=== PATIENT | male | born 1950 | race Caucasian/White ===

== ENCOUNTER 2016-02-08 21:39 | Observation (INO) | payer OTHER ==
[~2016-02-08] VITALS: Ht 185.4 cm; Wt 92.9 kg
[~2016-02-08 21:39] MED LIST: ASPCH81X PO; ATOR-24 PO; CARV12.52 PO; INSDGIPEN SC; LSN20 PO; METF1000 PO; NITR0.4S UT; NRN800 PO; NVLGIPEN SC; NYSCR30 TOP; ROPI1TAB29 PO; TRAM-10 PO; TRMO115 TOP
--- NOTE | 2016-02-08 21:57 | EMERGENCY ROOM VISIT NOTE ---
History Report prepared by Semaj: Rommel Wiley Under the Supervision of: Dr. Oren Vanegas M.D. First contact with patient: 21:44 Chief Complaint: CHEST PAIN Stated Complaint: HIGH BP/CHEST PAIN History of Present Illness The patient is a 65 year old male who presents to the Emergency Room with complaints of intermittent chest pain occurring this evening. The pain is described as tightness, and is rated 6/10 in severity. The patient also had a slight headache. He does not currently have chest pain or a headache. The episodes of chest tightness lasted only a few minutes. He had two episodes in total. His blood pressure was elevated at home at 220/121. The patient takes Lisinopril for hypertension. His Lisinopril dose was halved and he was taken off of two other blood pressure medications because his pressure was too low in October. He has a history of heart attack and TIA. The patient's last stress test was in October. Source of History: patient Onset: this evening Position: chest Symptom Intensity: 6/10 Quality: other (tightness) Timing: intermittent Associated Symptoms: + headache Note: Hypertension. Review of Systems See HPI for pertinent positives & negatives. A total of 10 systems reviewed and were otherwise negative. Past Medical & Surgical Medical Problems: (1) ARF (acute renal failure) (2) CAD (coronary artery disease) (3) DM2 (diabetes mellitus, type 2) (4) HLD (hyperlipidemia) (5) HTN (hypertension) (6) Neuropathy (7) Stroke Surgical Problems: (1) H/O cardiac catheterization (2) H/O knee surgery (3) History of lumbar fusion (4) Hx of tonsillectomy (5) S/P wrist surgery Family History Gallbladder disease Heart disease Social History Smoking Status: Former Smoker Drug Use: none Marital Status: Occupation Status: retired, disabled Current/Historical Medications Scheduled Aspirin (Aspirin Chewable), 81 MG PO DAILY Atorvastatin (Lipitor), 40 MG PO DAILY Carvedilol (Coreg), 12.5 MG PO BID Insulin Aspart (Novolog Flexpen), 1 DOSE SC ACHS Insulin Glargine (Lantus Solostar), 22 UNITS SC HS Lisinopril (Lisinopril), 10 MG PO QAM Metformin Hcl (Glucophage), 1,000 MG PO BIDM Nystatin (Nystatin Cream), 1 APPLN TOP BID Ropinirole HCl (Ropinirole HCl), 1 MG PO HS Triamcinolone Acet (Triamcinolone Acetonide), 1 APPLN TOP BID Scheduled PRN Gabapentin (Gabapentin), 800 MG PO TID PRN for Pain Lisinopril (Lisinopril), 10 MG PO QPM PRN for Hypertension Nitroglycerin (Nitrostat), 0.4 MG UT UD PRN for Chest Pain Oxycodone Immediate Rel Tab (Roxicodone Ir), 5-10 MG PO DAILY PRN for Pain Allergies Coded Allergies: No Known Allergies (Unverified , 08/24/15) Physical Exam Vital Signs Date Time Temp Pulse Resp B/P Pulse Ox O2 Delivery O2 Flow Rate FiO2 02/08/16 22:08 Room Air 02/08/16 22:01 80 02/08/16 21:40 36.7 87 18 191/112 96 Room Air Physical Exam CONSTITUTIONAL: No acute distress. HEENT: No icterus, moist mucous membranes NECK: No meningismus, trachea is midline. CARDIOVASCULAR: Regular rate, normal perfusion RESPIRATORY: Unlabored breathing. Clear to auscultation. GASTROINTESTINAL: Non-tender GENITOURINARY: No flank tenderness MUSCULOSKELETAL: Full range of motion NEUROLOGIC: No acute gross focal deficits. PSYCHIATRIC: Normal affect SKIN: Normal for ethnicity. Medical Decision & Procedures ER Provider Diagnostic Interpretation: X-ray results as stated below per interpretation by me and the radiologist. SINGLE VIEW CHEST CLINICAL HISTORY: Atypical chest pain. FINDINGS: An AP, portable, upright chest radiograph is compared to study dated 08/24/2015. The cardiomediastinal silhouette is unremarkable. The lungs and pleural spaces are clear. No pneumothorax is seen. The bony thorax is grossly intact. Fusion hardware is noted at the thoracolumbar junction. IMPRESSION: No active disease in the chest. Electronically signed by: Oscar Floyd M.D. 02/08/2016 10:11 PM Laboratory Results 02/08/16 21:57 Red Blood Count 4.39, Mean Corpuscular Volume 87.7, Mean Corpuscular Hemoglobin 31.2, Mean Corpuscular Hemoglobin Concent 35.6, Mean Platelet Volume 11.2, Neutrophils (%) (Auto) 53.7, Lymphocytes (%) (Auto) 37.5, Monocytes (%) (Auto) 4.8, Eosinophils (%) (Auto) 3.2, Basophils (%) (Auto) 0.5, Neutrophils # (Auto) 4.27, Lymphocytes # (Auto) 2.97, Monocytes # (Auto) 0.38, Eosinophils # (Auto) 0.25, Basophils # (Auto) 0.04 Test 02/08/16 21:57 White Blood Count 7.93 K/uL (4.8-10.8) Red Blood Count 4.39 M/uL (4.7-6.1) Hemoglobin 13.7 g/dL (14.0-18.0) Hematocrit 38.5 % (42-52) Mean Corpuscular Volume 87.7 fL (80-100) Mean Corpuscular Hemoglobin 31.2 pg (25-34) Mean Corpuscular Hemoglobin Concent 35.6 g/dl (32-36) Platelet Count 174 K/uL (130-400) Mean Platelet Volume 11.2 fL (7.4-10.4) Neutrophils (%) (Auto) 53.7 % Lymphocytes (%) (Auto) 37.5 % Monocytes (%) (Auto) 4.8 % Eosinophils (%) (Auto) 3.2 % Basophils (%) (Auto) 0.5 % Neutrophils # (Auto) 4.27 K/uL (1.4-6.5) Lymphocytes # (Auto) 2.97 K/uL (1.2-3.4) Monocytes # (Auto) 0.38 K/uL (0.11-0.59) Eosinophils # (Auto) 0.25 K/uL (0-0.5) Basophils # (Auto) 0.04 K/uL (0-0.2) RDW Standard Deviation 37.1 fL (36.4-46.3) RDW Coefficient of Variation 11.7 % (11.5-14.5) Immature Granulocyte % (Auto) 0.3 % Immature Granulocyte # (Auto) 0.02 K/uL (0.00-0.02) Prothrombin Time 10.3 SECONDS (9.0-12.0) Prothromb Time International Ratio 1.0 (0.9-1.1) Activated Partial Thromboplast Time 21.3 SECONDS (21.0-31.0) Partial Thromboplastin Ratio 0.8 Troponin I < 0.015 ng/ml (0-0.045) Labs reviewed by ED physician. Medications Administered Medications (Trade) Dose Ordered Sig/Cari Route Start Time Stop Time Status Last Admin Dose Admin Clonidine HCl (Catapres Tab) 0.1 mg NOW ONCE PO 02/08/16 22:00 02/08/16 22:01 DC 02/08/16 22:07 0.1 MG ECG Indication: chest pain Rate (beats per minute): 81 Rhythm: sinus rhythm Findings: nonspecific-ST abn, other (normal axis) ED Course 2145: Past medical records reviewed. The patient was evaluated in room A9b. A complete history and physical examination was performed. 2200: Clonidine HCl 0.1 mg PO. 2250: Hospitalist service is being paged. 2300: Discussed everything with the patient. He understands and agrees with the plan. []: Discussed the case with Dr. Bolden, [facility] Hospitalist. The patient will be evaluated Medical Decision Differential diagnosis: coronary artery disease, hypertensive urgency. 65-year-old with history of insulin-dependent diabetes as well as coronary artery disease status post CA several years ago around [place] and no history of hypertension on lisinopril and several other medications presents to the emergency room for waxing and waning chest pain and context of blood pressure 220/140 at home and 190/112 the emergency room. Review of systems notable for mild waxing and waning headache without focal neurologic deficits. He also reveals the last several months his doctors reduced his blood pressure medications as blood pressures running too low. He is comfortable on my exam without any chest pain or headaches. EKG and troponin within normal limits. Given clonidine for high blood pressure and admission arranged with hospital service Impression Primary Impression: HTN (hypertension) Additional Impression: Precordial chest pain Scribe Attestation The scribe's documentation has been prepared under my direction and personally reviewed by me in its entirety. I confirm that the note above accurately reflects all work, treatment, procedures, and medical decision making performed by me. Departure Information Dispostion Being Evaluated By Hospitalist Referrals Zafar Lau M.D.([facility]) (PCP) Patient Instructions A Signature Page, My [facility]
[2016-02-08] MEDS ORDERED: CLONIDINE HCL 0.1 MG TAB PO ONE (22:00)
--- NOTE | 2016-02-08 22:13 | DIAGNOSTIC IMAGING REPORT ---
SINGLE VIEW CHEST CLINICAL HISTORY: Atypical chest pain. FINDINGS: An AP, portable, upright chest radiograph is compared to study dated 08/24/2015. The cardiomediastinal silhouette is unremarkable. The lungs and pleural spaces are clear. No pneumothorax is seen. The bony thorax is grossly intact. Fusion hardware is noted at the thoracolumbar junction. IMPRESSION: No active disease in the chest. Electronically signed by: Oscar Floyd M.D. 02/08/2016 10:11 PM
[2016-02-08 22:22] LABS: BASO % 0.5 %; BASO ABS # 0.04 K/uL (0-0.2); COMPLETE YES; EOS % 3.2 %; HEMATOCRIT 38.5 % (42-52); IG% 0.3 %; LYMPH % 37.5 %; LYMPH ABS # 2.97 K/uL (1.2-3.4); MEAN CELL VOLUME 87.7 fL (80-100); MEAN CORPUSCULAR HEMOGLOBIN 31.2 pg (25-34); MEAN CORPUSCULAR HGB CONC 35.6 g/dl (32-36); MEAN PLATELET VOLUME 11.2 fL (7.4-10.4); MONO % 4.8 %; NEUT % 53.7 %; PLATELET COUNT 174 K/uL (130-400); RED BLOOD COUNT 4.39 M/uL (4.7-6.1); WHITE BLOOD COUNT 7.93 K/uL (4.8-10.8)
[2016-02-08 22:31] LABS: PARTIAL THROMBOPLASTIN RATIO 0.8; PROTHROMBIN TIME (PATIENT) 10.3 SECONDS (9.0-12.0)
[2016-02-08] MEDS ORDERED: NVLGI/PEN SC (22:55)
[2016-02-08] MEDS ORDERED: OXYC1TAB3 PO (22:55)
[2016-02-08] MEDS ORDERED: INSDGIPEN SC (22:55)
[2016-02-08] MEDS ORDERED: LSN20 PO (22:59)
[2016-02-09] VITALS (8 sets, daily range): BP systolic 151–192; BP diastolic 83–113; PULSE 65–77; TEMP 36.4–36.7; O2SAT 95–98; Ht 185.4 cm; Wt 92.9 kg
[2016-02-09] MEDS ORDERED: DEXTROSE 50% 50 ML SYR IV PRN (01:15)
[2016-02-09] MEDS ORDERED: GLUCAGON FOR INJ 1 MG VIAL SQ PRN (01:15)
[2016-02-09] MEDS ORDERED: ACETAMINOPHEN 325 MG TAB PO PRN (01:15)
[2016-02-09] MEDS ORDERED: ONDANSETRON INJ 2 MG/ML 2 ML VIAL IV PRN ×2 (01:15)
[2016-02-09] MEDS ORDERED: GLUCOSE 40% GEL 15 GM TUBE PO PRN (01:15)
[2016-02-09] MEDS ORDERED: hydrOXYzine HCL 10 MG TAB PO PRN (01:15)
[2016-02-09] MEDS ORDERED: NITROGLYCERIN 0.4 MG SL PER TAB CHARGE SL PRN (01:15)
[2016-02-09] MEDS ORDERED: GLUCOSE 10 TABS/TUBE PO PRN (01:15)
[2016-02-09] MEDS ORDERED: GABAPENTIN 800 MG TAB PO PRN (01:15)
[2016-02-09] MEDS ORDERED: LORAZEPAM 2 MG/ML 1 ML VIAL IV PRN (01:15)
[2016-02-09] MEDS ORDERED: HYDROmorphone INJ 1 MG/ML SYR IV PRN (01:15)
[2016-02-09] MEDS ORDERED: LIDODERM (LIDOCAINE) PATCH 5% TD STA (01:22)
[2016-02-09 01:31] LABS: BUN/CREATININE RATIO 15.9 (10-20); CALCIUM 8.5 mg/dl (8.5-10.1); CREATININE 1.4 mg/dl (0.60-1.40); POTASSIUM 4.4 mmol/L (3.5-5.1)
[2016-02-09 01:33] LABS: ALB/GLOB RATIO 1.1 (0.9-2)
[2016-02-09] MEDS ORDERED: IV FLUIDS COMPLETED PRN (04:45)
--- NOTE | 2016-02-09 07:10 | DIAGNOSTIC IMAGING REPORT ---
HEAD CT NONCONTRAST CT DOSE: 614.27 mGy.cm HISTORY: Right-sided headache. TECHNIQUE: Multiaxial CT images of the head were performed without the use of intravenous contrast. Automated exposure control was utilized for this study. Comparison: Head CT 08/17/2013 Findings: The paranasal sinuses and mastoid air cells are clear. The calvarium and skull base are intact. There is no mass, hematoma, midline shift, acute infarct. White matter hypodensity is nonspecific but suggestive of microvascular ischemic change. The ventricles and sulci demonstrate mild age-related involutional changes. Impression: No significant change compared to the prior study. No acute intracranial abnormality. Electronically signed by: Gulshan Abraham M.D. 02/09/2016 7:08 AM
[2016-02-09 07:38] LABS: BASO % 0.9 %; BASO ABS # 0.06 K/uL (0-0.2); COMPLETE YES; EOS % 3.2 %; HEMATOCRIT 35.9 % (42-52); IG% 0.3 %; LYMPH % 37.2 %; LYMPH ABS # 2.53 K/uL (1.2-3.4); MEAN CELL VOLUME 86.9 fL (80-100); MEAN CORPUSCULAR HGB CONC 35.7 g/dl (32-36); MEAN PLATELET VOLUME 10.6 fL (7.4-10.4); MONO % 6.8 %; NEUT % 51.6 %; PLATELET COUNT 143 K/uL (130-400); RED BLOOD COUNT 4.13 M/uL (4.7-6.1); WHITE BLOOD COUNT 6.81 K/uL (4.8-10.8)
--- NOTE | 2016-02-09 07:50 | HISTORY & PHYSICAL EXAMINATION ---
DATE OF ADMISSION: 02/09/2016 PRIMARY CARE DOCTOR: Dr. Lau. Patient is planning to change to Dr. Lorraine Espinal. Hx obtained from px and records. CHIEF COMPLAINT: Chest pain, high blood pressure. HISTORY OF PRESENT ILLNESS: Medical history significant for hypertension, CAD, DM2, insulin requiring, past tobacco abuse, chronic back pain sp surgery, history of TIA as per records , hyperlipidemia. hx MRSA Recent confinement August 2015 for atypical chest pain. TTE showed EF 65-70%, aortic valve sclerosis, diastolic dysfunction. No pericardial effusion. Patient discharged home. The last few days, patient stressed out by sister's illness along with worsening of chronic back pain usually during cold weather. Patient noted left-sided chest achy discomfort. nonradiating. No shortness of breath, SBP at home is 200s. Patient also noted transient right-sided achy headache symptoms. Patient currently comfortable. Patient compliant with meds. Admits to eating sauerkraut which made him and his pass a lot of gas. MEDICAL HISTORY: As above. SURGERIES: Orthopedic surgery, back surgery, tonsillectomy, knee surgery, drainage of arm. HOME MEDICATIONS: Include aspirin, Lipitor, Coreg, gabapentin, Lantus, lisinopril, Glucophage, Nitrostat, oxycodone, ropinirole, and triamcinolone. ALLERGIES: No known drug allergies. FAMILY HISTORY: Heart disease. PERSONAL AND SOCIAL HISTORY: Past tobacco abuse, disabled. REVIEW OF SYSTEMS: As per HPI, all other ROS negative. PHYSICAL EXAMINATION: VITAL SIGNS: Blood pressure was noted to be 191/112, later 170/108; pulse rate 80; RR 16; temperature 36.4; sats 98 on room air. GENERAL: Noted to be slightly anxious, no respiratory distress. SKIN: pallor. HEENT: Partial alopecia. [place] palpebral conjunctivae, dry mucosa. NECK: No JVD. Supple. CHEST: Clear to auscultation. HEART: Regular rate and rhythm. ABDOMEN: Soft, BACK : tenderness, low back. Negative straight leg raise. NEUROLOGIC: No gross focality. LABORATORY DATA: Hemoglobin 13.7, hematocrit 38.4, white cells 7.9, platelets 174. Sodium 140, potassium 4.4, chloride 107, CO2 30, BUN 23, creatinine 1.4, glucose was noted to be 149. trop 0 IMAGING DATA: Chest x-ray showed no active disease in the chest. CT head, no acute pathology. EKG; rate 80, normal sinus rhythm, right bundle branch block, negative ischemia. ASSESSMENT: 1. Chest pain, likely secondary to hypertensive urgency multifactorial : worsening of chronic back pain 2 to cold weather as per px personal stress dietary indiscretion (sauerkraut consumption) 2. hx CAD as per records, no intervention in the past 3. past tobacco abuse 4. DM2, insulin requiring reasonable control as of recent outpx HgA1c October 2014 , 7.4 PLAN: Observation PCU Titrate blood pressure medicine analgesia, Lidoderm patch trial anxiolytic p.r.n. Home in the morning if the next troponin normal and blood pressure controlled. Continue basal insulin, ISS BG goal 140-180 Patient due for HgA1c check DVT prophylaxis with Lovenox subQ. Full code. MTDD
[2016-02-09] MEDS: ENOXAPARIN 40 MG/0.4 ML SYR SC SCH (08:11)
[2016-02-09] MEDS: CARVEDILOL 12.5 MG TAB PO SCH ×2 (08:12→19:36)
[2016-02-09] MEDS: ASPIRIN 81 MG ECTAB PO SCH (08:14)
[2016-02-09] MEDS: ATORVASTATIN 20 MG TAB PO SCH (08:14)
[2016-02-09 08:16] LABS: ESTIMATED AVERAGE GLUCOSE 174 mg/dl; HA1C FLAG Normal (Normal)
[2016-02-09] MEDS: INSULIN ASPART 100 UNITS/ML 3 ML PEN SC SCH ×4 (08:17→20:35)
[2016-02-09] MEDS: INSULIN GLARGINE SOLOSTAR 100 UNITS/ML 3 ML PEN SC SCH ×2 (08:19→20:40)
[2016-02-09] MEDS ORDERED: LISINOPRIL 10 MG TAB PO SCH (09:00)
--- NOTE | 2016-02-09 15:07 | Progress Note ---
Internal Med Progress Note Date of Service: Feb 09, 2016. Provider Documentation: SUBJECTIVE: The patient was seen and examined Denies any more CP Has had High Blood pressure noted at home Has had Anxiety associated with the rise in BP OBJECTIVE: Vital Signs-as noted below Exam: General-Nop distress at rest Eyes-NOrmal ENT-normal Neck-supple Lungs-clear to auscultate bilaterally Heart-Regular,no murmur appreciated Abdomen-Benign,no masses,bowel sound present Extremities-No edema Neuro-AAoc3 Lab data as noted below. ASSESSMENT & PLAN: Chest pain, Doubt any ACS ,serial Troponin negative Likely secondary to hypertensive urgency Worsening of chronic back pain 2 to cold weather as per px Personal stress and dietary indiscretion (sauerkraut consumption) BP was very High >200 at home Recent Change in Medication BP seems toward control now Continue current medications CAD as per records, no intervention in the past no More CP ROMELIA are negative Past tobacco abuse DM2, insulin requiring reasonable control as of recent outpx HgA1c October 2014 , 7.4 Continue basal insulin, ISS BG goal 140-180 Patient due for HgA1c check DVT prophylaxis with Lovenox subQ. Full code. DISPOSITION Likely home tomorrow if BP is reasonable and no symptoms Vital Signs: Date Time Temp Pulse Resp B/P Pulse Ox O2 Delivery O2 Flow Rate FiO2 02/09/16 11:51 36.5 67 19 152/92 98 Room Air 02/09/16 08:30 36.5 65 18 169/90 97 Room Air 02/09/16 04:00 Room Air 02/09/16 03:36 36.7 74 15 162/83 95 Room Air 02/09/16 01:38 36.4 77 16 175/91 98 Room Air 02/09/16 00:58 160/90 100 Room Air 02/09/16 00:44 80 16 02/09/16 00:28 163/94 02/09/16 00:14 78 19 02/08/16 23:58 176/104 02/08/16 23:28 171/97 02/08/16 23:14 82 22 02/08/16 23:09 80 17 98 Room Air 02/08/16 22:58 172/103 02/08/16 22:39 75 17 02/08/16 22:37 175/108 99 Room Air 02/08/16 22:09 79 16 02/08/16 22:08 Room Air 02/08/16 22:01 80 02/08/16 21:53 195/136 02/08/16 21:40 36.7 87 18 191/112 96 Room Air Lab Results: Results Past 24 Hours Test 02/08/16 21:57 02/09/16 06:44 02/09/16 07:16 02/09/16 11:20 Range/Units White Blood Count 7.93 6.81 4.8-10.8 K/uL Red Blood Count 4.39 4.13 4.7-6.1 M/uL Hemoglobin 13.7 12.8 14.0-18.0 g/dL Hematocrit 38.5 35.9 42-52 % Mean Corpuscular Volume 87.7 86.9 80-100 fL Mean Corpuscular Hemoglobin 31.2 31.0 25-34 pg Mean Corpuscular Hemoglobin Concent 35.6 35.7 32-36 g/dl Platelet Count 174 143 130-400 K/uL Mean Platelet Volume 11.2 10.6 7.4-10.4 fL Neutrophils (%) (Auto) 53.7 51.6 % Lymphocytes (%) (Auto) 37.5 37.2 % Monocytes (%) (Auto) 4.8 6.8 % Eosinophils (%) (Auto) 3.2 3.2 % Basophils (%) (Auto) 0.5 0.9 % Neutrophils # (Auto) 4.27 3.52 1.4-6.5 K/uL Lymphocytes # (Auto) 2.97 2.53 1.2-3.4 K/uL Monocytes # (Auto) 0.38 0.46 0.11-0.59 K/uL Eosinophils # (Auto) 0.25 0.22 0-0.5 K/uL Basophils # (Auto) 0.04 0.06 0-0.2 K/uL RDW Standard Deviation 37.1 36.8 36.4-46.3 fL RDW Coefficient of Variation 11.7 11.6 11.5-14.5 % Immature Granulocyte % (Auto) 0.3 0.3 % Immature Granulocyte # (Auto) 0.02 0.02 0.00-0.02 K/uL Prothrombin Time 10.3 9.0-12.0 SECONDS Prothromb Time International Ratio 1.0 0.9-1.1 Activated Partial Thromboplast Time 21.3 21.0-31.0 SECONDS Partial Thromboplastin Ratio 0.8 Sodium Level 145 136-145 mmol/L Potassium Level 4.4 3.5-5.1 mmol/L Chloride Level 107 98-107 mmol/L Carbon Dioxide Level 30 21-32 mmol/L Anion Gap 8.0 3-11 mmol/L Blood Urea Nitrogen 22 7-18 mg/dl Creatinine 1.40 0.60-1.40 mg/dl Est Creatinine Clear Calc Drug Dose 66.4 ml/min Estimated GFR () 61.5 Estimated GFR (Non- 53.1 BUN/Creatinine Ratio 15.9 10-20 Random Glucose 149 70-99 mg/dl Estimated Average Glucose 174 mg/dl Hemoglobin A1c 7.7 4.5-5.6 % Calcium Level 8.5 8.5-10.1 mg/dl Total Bilirubin 0.2 0.2-1 mg/dl Aspartate Amino Transf (AST/SGOT) 24 15-37 U/L Alanine Aminotransferase (ALT/SGPT) 31 12-78 U/L Alkaline Phosphatase 95 45-117 U/L Troponin I < 0.015 < 0.015 0-0.045 ng/ml Total Protein 6.5 6.4-8.2 gm/dl Albumin 3.4 3.4-5.0 gm/dl Globulin 3.1 2.5-4.0 gm/dl Albumin/Globulin Ratio 1.1 0.9-2 Lipase 229 73-393 U/L Bedside Glucose 136 183 70-99 mg/dl Hepatitis C Antibody Screen NEG NEG
[2016-02-09] MEDS: OXYCODONE HCL IR 5 MG TAB (IMMEDIATE RELEASE) PO PRN ×2 (19:40→23:34)
[2016-02-09] MEDS ORDERED: ROPINIROLE HCL 1 MG TAB PO SCH (21:00)
[2016-02-09] MEDS: LISINOPRIL 10 MG TAB PO SCH (21:44)
[2016-02-10] VITALS (7 sets, daily range): BP systolic 145–188; BP diastolic 67–89; PULSE 67–69; TEMP 36.5–37; O2SAT 96–99
[2016-02-10 06:37] LABS: BASO % 0.6 %; BASO ABS # 0.04 K/uL (0-0.2); COMPLETE YES; EOS % 3.6 %; HEMATOCRIT 36.9 % (42-52); IG% 0.3 %; LYMPH ABS # 2.48 K/uL (1.2-3.4); MEAN CELL VOLUME 86.8 fL (80-100); MEAN CORPUSCULAR HEMOGLOBIN 31.3 pg (25-34); MONO % 8.5 %; PLATELET COUNT 142 K/uL (130-400); RED BLOOD COUNT 4.25 M/uL (4.7-6.1)
[2016-02-10] MEDS: INSULIN ASPART 100 UNITS/ML 3 ML PEN SC SCH ×3 (07:00→16:15)
[2016-02-10 07:08] LABS: BUN/CREATININE RATIO 17.4 (10-20); CALCIUM 8.8 mg/dl (8.5-10.1); CREATININE 0.94 mg/dl (0.60-1.40); POTASSIUM 3.6 mmol/L (3.5-5.1)
[2016-02-10] MEDS: LISINOPRIL 10 MG TAB PO SCH (08:49)
[2016-02-10] MEDS: ASPIRIN 81 MG ECTAB PO SCH (08:49)
[2016-02-10] MEDS: ATORVASTATIN 20 MG TAB PO SCH (08:50)
[2016-02-10] MEDS: CARVEDILOL 12.5 MG TAB PO SCH (08:50)
[2016-02-10] MEDS: INSULIN GLARGINE SOLOSTAR 100 UNITS/ML 3 ML PEN SC SCH (08:51)
[2016-02-10] MEDS: ENOXAPARIN 40 MG/0.4 ML SYR SC SCH (08:52)
[2016-02-10] MEDS ORDERED: LIDODERM (LIDOCAINE) PATCH 5% TD SCH (09:00)
--- NOTE | 2016-02-10 10:50 | Progress Note ---
Internal Med Progress Note Date of Service: Feb 10, 2016. Provider Documentation: SUBJECTIVE: The patient was seen and examined Has had High Blood pressure noted at home Has had Anxiety associated with the rise in BP BP seems to be towards control side Denies any symptoms-No chest pain,palpitation OBJECTIVE: Vital Signs-as noted below Exam: General-Nop distress at rest Eyes-Normal ENT-normal Neck-supple Lungs-clear to auscultate bilaterally Heart-Regular,no murmur appreciated Abdomen-Benign,no masses,bowel sound present Extremities-No edema Neuro-AAoc3 Lab data as noted below. ASSESSMENT & PLAN: Chest pain, Doubt any ACS ,serial Troponin negative Likely secondary to hypertensive urgency Worsening of chronic back pain 2 to cold weather as per px Personal stress and dietary indiscretion (sauerkraut consumption) BP was very High >200 at home Recent Change in Medication BP seems toward control now Continue current medications Denies any more symptoms Ready to be discharged CAD as per records, no intervention in the past no More CP ROMELIA are negative Past tobacco abuse DM2, insulin requiring reasonable control as of recent outpx HgA1c October 2014 , 7.4 Continue basal insulin, ISS BG goal 140-180 Patient due for HgA1c check-7.7 on 02/08/2016 DVT prophylaxis with Lovenox subQ. Full code. DISPOSITION Discharge home today Vital Signs: Date Time Temp Pulse Resp B/P Pulse Ox O2 Delivery O2 Flow Rate FiO2 02/10/16 08:43 36.7 68 16 160/76 99 02/10/16 08:00 98 Room Air 02/10/16 04:03 Room Air 02/10/16 03:48 36.5 67 15 158/89 98 Room Air 02/10/16 00:05 Room Air 02/09/16 23:38 36.4 66 17 164/92 98 Room Air 02/09/16 20:45 169/108 02/09/16 20:45 192/113 02/09/16 20:05 Room Air 02/09/16 19:49 36.7 68 16 170/97 98 Room Air 02/09/16 16:16 36.6 66 18 151/86 96 Room Air 02/09/16 16:00 Room Air 02/09/16 12:00 Room Air 02/09/16 11:51 36.5 67 19 152/92 98 Room Air Lab Results: Results Past 24 Hours Test 02/09/16 11:20 02/09/16 15:59 02/09/16 19:58 02/10/16 06:10 Range/Units Bedside Glucose 183 110 132 70-99 mg/dl White Blood Count 6.70 4.8-10.8 K/uL Red Blood Count 4.25 4.7-6.1 M/uL Hemoglobin 13.3 14.0-18.0 g/dL Hematocrit 36.9 42-52 % Mean Corpuscular Volume 86.8 80-100 fL Mean Corpuscular Hemoglobin 31.3 25-34 pg Mean Corpuscular Hemoglobin Concent 36.0 32-36 g/dl Platelet Count 142 130-400 K/uL Mean Platelet Volume 11.0 7.4-10.4 fL Neutrophils (%) (Auto) 50.0 % Lymphocytes (%) (Auto) 37.0 % Monocytes (%) (Auto) 8.5 % Eosinophils (%) (Auto) 3.6 % Basophils (%) (Auto) 0.6 % Neutrophils # (Auto) 3.35 1.4-6.5 K/uL Lymphocytes # (Auto) 2.48 1.2-3.4 K/uL Monocytes # (Auto) 0.57 0.11-0.59 K/uL Eosinophils # (Auto) 0.24 0-0.5 K/uL Basophils # (Auto) 0.04 0-0.2 K/uL RDW Standard Deviation 36.4 36.4-46.3 fL RDW Coefficient of Variation 11.7 11.5-14.5 % Immature Granulocyte % (Auto) 0.3 % Immature Granulocyte # (Auto) 0.02 0.00-0.02 K/uL Test 02/10/16 06:12 02/10/16 06:36 Range/Units Sodium Level 142 136-145 mmol/L Potassium Level 3.6 3.5-5.1 mmol/L Chloride Level 107 98-107 mmol/L Carbon Dioxide Level 29 21-32 mmol/L Anion Gap 6.0 3-11 mmol/L Blood Urea Nitrogen 16 7-18 mg/dl Creatinine 0.94 0.60-1.40 mg/dl Est Creatinine Clear Calc Drug Dose 90.9 ml/min Estimated GFR () 99.6 Estimated GFR (Non- 85.9 BUN/Creatinine Ratio 17.4 10-20 Random Glucose 84 70-99 mg/dl Calcium Level 8.8 8.5-10.1 mg/dl Bedside Glucose 97 70-99 mg/dl
--- NOTE | 2016-02-10 11:59 | Discharge Instructions ---
Discharge Instructions Admission Reason for Admission: Chest Pain Discharge Discharge Diagnosis / Problem: Hypertensive Urgency,Chest pain-no ACS Discharge Goals Goal(s): Prevent Disease Progression Activity Recommendations Activity Limitations: resume your previous activity . Instructions / Follow-Up Instructions / Follow-Up Please keep appointment with your PCP Current Hospital Diet Patient's current hospital diet: Diabetes Type 2 Diet Discharge Diet Recommended Diet: AHA Diet (Heart Healthy), Diabetes Type 2 Diet Pending Studies Studies pending at discharge: no Laboratory Results Hemoglobin A1c Test 02/08/16 21:57 Range/Units Estimated Average Glucose 174 mg/dl Hemoglobin A1c 7.7 H 4.5-5.6 % Medical Emergencies . Who to Call and When: Medical Emergencies: If at any time you feel your situation is an emergency, please call 911 immediately. . Non-Emergent Contact Non-Emergency issues call your: Primary Care Provider . . "Provider Documentation" section prepared by Gonzalo Moss. VTE Core Measure Inpt VTE Proph given/why not?: Enoxaparin (Lovenox)SQ
--- NOTE | 2016-02-10 12:12 | Discharge Summary ---
Discharge Summary Admission Date: Feb 09, 2016 at 00:36 Discharge Date: Feb 10, 2016 Discharge Disposition: Home Principal Diagnosis: Hypertensive Urgency,Chest pain-no ACS Secondary Diagnoses/Problems: Please see H&P Medication Reconciliation Continued Medications: Aspirin (Aspirin Chewable) 81 Mg Chew 81 MG PO DAILY Atorvastatin (Lipitor) 40 Mg Tab 40 MG PO DAILY Carvedilol (Coreg) 12.5 Mg Tab 12.5 MG PO BID TAKE THIS MEDICATION WITH FOOD Gabapentin (Gabapentin) 800 Mg Tab 800 MG PO TID PRN for Pain Insulin Aspart (Novolog Flexpen) 100 Units/Ml Inj 1 DOSE SC ACHS COVERAGE DIRECTED BY FOLLOWING SLIDING SCALE: 151 - 200 1 UNIT 201 - 250 2 UNITS 251 - 300 3 UNITS 301 - 350 4 UNITS 351 + 5 UNITS CARB RATIO 1:15 AND 1:50 CORRECTION FACTOR OVER 100 Insulin Glargine (Lantus Solostar) 100 Unit/Ml Inj 22 UNITS SC HS, PEN Lisinopril (Lisinopril) 20 Mg Tab 10 MG PO BID Metformin Hcl (Glucophage) 1,000 Mg Tab 1000 MG PO BIDM, TAB Nitroglycerin (Nitrostat) 0.4 Mg Sub 0.4 MG UT UD PRN for Chest Pain PLACE ONE TABLET UNDER THE TONGUE EVERY 5 MINUTES FOR UP TO 3 DOSES IF NEEDED FOR CHEST PAIN Nystatin (Nystatin Cream) 90 Appln/30 Gm Cr 1 APPLN TOP BID APPLY TO AFFECTED AREA DIRECTED FOR UP TO 2 WEEKS Oxycodone Immediate Rel Tab (Roxicodone Ir) 5 Mg Tab 5-10 MG PO DAILY PRN for Pain, TAB Ropinirole HCl (Ropinirole HCl) 1 Mg Tab 1 MG PO HS TAKE THIS MEDICATION 1 TO 3 HOURS BEFORE BEDTIME WITH FOOD Triamcinolone Acet (Triamcinolone Acetonide) 45 Appln/15 Gm Oint 1 APPLN TOP BID APPLY TO AFFECTED AREA UP TO 2X/DAY Discontinued Medications: Lisinopril (Lisinopril) 20 Mg Tab 10 MG PO QAM Admission Information HPI (per Admitting provider): DATE OF ADMISSION: 02/09/2016 PRIMARY CARE DOCTOR: Dr. Lau. Patient is planning to change to Dr. Lorraine Espinal. Hx obtained from px and records. CHIEF COMPLAINT: Chest pain, high blood pressure. HISTORY OF PRESENT ILLNESS: Medical history significant for hypertension, CAD, DM2, insulin requiring, past tobacco abuse, chronic back pain sp surgery, history of TIA as per records , hyperlipidemia. hx MRSA Recent confinement August 2015 for atypical chest pain. TTE showed EF 65-70%, aortic valve sclerosis, diastolic dysfunction. No pericardial effusion. Patient discharged home. The last few days, patient stressed out by sister's illness along with worsening of chronic back pain usually during cold weather. Patient noted left-sided chest achy discomfort. nonradiating. No shortness of breath, SBP at home is 200s. Patient also noted transient right-sided achy headache symptoms. Patient currently comfortable. Patient compliant with meds. Admits to eating [place] which made him and his pass a lot of gas. MEDICAL HISTORY: As above. SURGERIES: Orthopedic surgery, back surgery, tonsillectomy, knee surgery, drainage of arm. HOME MEDICATIONS: Include aspirin, Lipitor, Coreg, gabapentin, Lantus, lisinopril, Glucophage, Nitrostat, oxycodone, ropinirole, and triamcinolone. ALLERGIES: No known drug allergies. FAMILY HISTORY: Heart disease. PERSONAL AND SOCIAL HISTORY: Past tobacco abuse, disabled. REVIEW OF SYSTEMS: As per HPI, all other ROS negative. PHYSICAL EXAMINATION: VITAL SIGNS: Blood pressure was noted to be 191/112, later 170/108; pulse rate 80; RR 16; temperature 36.4; sats 98 on room air. GENERAL: Noted to be slightly anxious, no respiratory distress. SKIN: pallor. HEENT: Partial alopecia. [place] palpebral conjunctivae, dry mucosa. NECK: No JVD. Supple. CHEST: Clear to auscultation. HEART: Regular rate and rhythm. ABDOMEN: Soft, BACK : tenderness, low back. Negative straight leg raise. NEUROLOGIC: No gross focality. LABORATORY DATA: Hemoglobin 13.7, hematocrit 38.4, white cells 7.9, platelets 174. Sodium 140, potassium 4.4, chloride 107, CO2 30, BUN 23, creatinine 1.4, glucose was noted to be 149. trop 0 IMAGING DATA: Chest x-ray showed no active disease in the chest. CT head, no acute pathology. EKG; rate 80, normal sinus rhythm, right bundle branch block, negative ischemia. ASSESSMENT: 1. Chest pain, likely secondary to hypertensive urgency multifactorial : worsening of chronic back pain 2 to cold weather as per px personal stress dietary indiscretion (sauerkraut consumption) 2. hx CAD as per records, no intervention in the past 3. past tobacco abuse 4. DM2, insulin requiring reasonable control as of recent outpx HgA1c October 2014 , 7.4 PLAN: Observation PCU Titrate blood pressure medicine analgesia, Lidoderm patch trial anxiolytic p.r.n. Home in the morning if the next troponin normal and blood pressure controlled. Continue basal insulin, ISS BG goal 140-180 Patient due for HgA1c check DVT prophylaxis with Lovenox subQ. Full code. Hospital Course Chest pain, Doubt any ACS ,serial Troponin negative Likely secondary to hypertensive urgency Worsening of chronic back pain 2 to cold weather as per px Personal stress and dietary indiscretion (sauerkraut consumption) BP was very High >200 at home Recent Change in Medication BP seems toward control now Continue current medications Denies any more symptoms Ready to be discharged CAD as per records, no intervention in the past no More CP ROMELIA are negative Past tobacco abuse DM2, insulin requiring reasonable control as of recent outpx HgA1c October 2014 , 7.4 Continue basal insulin, ISS BG goal 140-180 Patient due for HgA1c check-7.7 on 02/08/2016 DVT prophylaxis with Lovenox subQ. Full code. DISPOSITION Discharge home today Total time spent on discharge = 35 minutes This includes examination of the patient, discharge planning, medication reconciliation, and communication with other providers. Discharge Instructions Admission Reason for Admission: Chest Pain Discharge Discharge Diagnosis / Problem: Hypertensive Urgency,Chest pain-no ACS Discharge Goals Goal(s): Prevent Disease Progression Activity Recommendations Activity Limitations: resume your previous activity . Instructions / Follow-Up Instructions / Follow-Up Please keep appointment with your PCP Current Hospital Diet Patient's current hospital diet: Diabetes Type 2 Diet Discharge Diet Recommended Diet: AHA Diet (Heart Healthy), Diabetes Type 2 Diet Pending Studies Studies pending at discharge: no Laboratory Results Hemoglobin A1c Test 02/08/16 21:57 Range/Units Estimated Average Glucose 174 mg/dl Hemoglobin A1c 7.7 H 4.5-5.6 % Medical Emergencies . Who to Call and When: Medical Emergencies: If at any time you feel your situation is an emergency, please call 911 immediately. . Non-Emergent Contact Non-Emergency issues call your: Primary Care Provider . . "Provider Documentation" section prepared by Gonzalo Moss. VTE Core Measure Inpt VTE Proph given/why not?: Enoxaparin (Lovenox)SQ <Electronically signed by Gonzalo Moss M.D.>
[2016-03-24] MEDS ORDERED: CZR25 PO (13:37)
== END 2016-02-10 16:25 | disposition home or self-care (01) ==
LOC: CANRESERV → ENRESERVDT → ENRESERVTM → C.EDB 21:39 → C.2T 02-09 00:36
PROVIDERS: ADMIT Internal Medicine; ATTEND Internal Medicine
DX: R07.89 Other chest pain (principal); E11.9 Type 2 diabetes mellitus without complications; E78.5 Hyperlipidemia, unspecified; I10 Essential (primary) hypertension; I25.10 Atherosclerotic heart disease of native coronary artery without angina pectoris; M54.9 Dorsalgia, unspecified; Z79.4 Long term (current) use of insulin; Z79.82 Long term (current) use of aspirin; Z86.73 Personal history of transient ischemic attack (TIA), and cerebral infarction without residual deficits; Z87.891 Personal history of nicotine dependence

== ENCOUNTER 2016-03-23 05:41 | Observation (INO) | payer OTHER ==
[~2016-03-23] VITALS: Ht 185.4 cm; Wt 93.0 kg
[~2016-03-23 05:41] MED LIST changes: +NVLGI/PEN SC; -NVLGIPEN SC; +OXYC1TAB3 PO; -TRAM-10 PO
[2016-03-23] MEDS ORDERED: OXYC-106 PO (06:37)
[2016-03-23] MEDS ORDERED: NF656 TOP (06:37)
[2016-03-23] MEDS ORDERED: HYDROCODONE/ACETAMI 10/325 TAB PO STA (06:49)
[2016-03-23] MEDS ORDERED: ASPIRIN 324 MG CHEW PO STA (06:49)
--- NOTE | 2016-03-23 07:07 | DIAGNOSTIC IMAGING REPORT ---
CHEST ONE VIEW PORTABLE CLINICAL HISTORY: cp dyspnea COMPARISON STUDY: 02/08/2016 FINDINGS: The bones soft tissues and hemidiaphragms are normal. The cardiomediastinal silhouette is normal. The lungs are clear. The pulmonary vasculature is normal. IMPRESSION: Negative chest. Electronically signed by: Nilo Tenorio M.D. 03/23/2016 7:05 AM Dictated Date/Time: 03/23/2016 7:05 AM
[2016-03-23 07:12] LABS: BASO % 0.8 %; BASO ABS # 0.06 K/uL (0-0.2); COMPLETE YES; EOS % 9.3 %; HEMATOCRIT 37.5 % (42-52); IG% 0.1 %; LYMPH % 27.2 %; LYMPH ABS # 1.99 K/uL (1.2-3.4); MEAN CORPUSCULAR HEMOGLOBIN 31.1 pg (25-34); MEAN CORPUSCULAR HGB CONC 35.7 g/dl (32-36); MEAN PLATELET VOLUME 10.4 fL (7.4-10.4); MONO % 6.3 %; NEUT % 56.3 %; PLATELET COUNT 156 K/uL (130-400); RED BLOOD COUNT 4.31 M/uL (4.7-6.1); WHITE BLOOD COUNT 7.32 K/uL (4.8-10.8)
[2016-03-23 07:20] LABS: PARTIAL THROMBOPLASTIN RATIO 0.9; PROTHROMBIN TIME (PATIENT) 10.2 SECONDS (9.0-12.0)
[2016-03-23 07:30] LABS: CALCIUM 8.6 mg/dl (8.5-10.1); CREATININE 1.1 mg/dl (0.60-1.40); POTASSIUM 4.5 mmol/L (3.5-5.1)
[2016-03-23] MEDS ORDERED: NITROGLYCERIN OINT 2% 1GM PACKET EXT ONE (07:30)
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
[2016-03-23] MEDS: SODIUM CHLORIDE 0.9% 1000ML 1,000 ML IV SCH ×2 (08:42→20:55)
[2016-03-23] MEDS ORDERED: ONDANSETRON INJ 2 MG/ML 2 ML VIAL IV PRN (08:45)
[2016-03-23] MEDS ORDERED: GLUCOSE 40% GEL 15 GM TUBE PO PRN (08:45)
[2016-03-23] MEDS ORDERED: ALUMINUM/MAGNESIUM/SIMETH (MAALOX MAX) 30 ML UDC PO PRN (08:45)
[2016-03-23] MEDS ORDERED: MAGNESIUM HYDROXIDE SUSP 30 ML UDC PO PRN (08:45)
[2016-03-23] MEDS ORDERED: GLUCOSE 10 TABS/TUBE PO PRN (08:45)
[2016-03-23] MEDS ORDERED: ACETAMINOPHEN 325 MG TAB PO PRN (08:45)
[2016-03-23] MEDS ORDERED: GLUCAGON FOR INJ 1 MG VIAL SQ PRN (08:45)
[2016-03-23] MEDS ORDERED: DEXTROSE 50% 50 ML SYR IV PRN (08:45)
[2016-03-23] MEDS ORDERED: NITROGLYCERIN 0.4 MG SL PER TAB CHARGE SL PRN (08:45)
[2016-03-23] MEDS ORDERED: MoRPHine SULFATE 2 MG/ML CARP IV PRN (08:45)
[2016-03-23] MEDS ORDERED: POLYETHYLENE (MIRALAX) 17 GM PACK PO PRN (08:45)
[2016-03-23] MEDS ORDERED: HydrALAZINE HCL 20 MG/ML VIAL IV. STA (08:56)
[2016-03-23] MEDS: TRIAMCINOLONE ACET 0.1% OINT 15 GM TUBE TOP SCH ×2 (09:00→20:41)
[2016-03-23] MEDS ORDERED: PHARMACY GLYCEMIC MGMT CONSULT PRN (09:10)
[2016-03-23] MEDS ORDERED: IV FLUIDS COMPLETED PRN (09:15)
--- NOTE | 2016-03-23 09:17 | DIAGNOSTIC IMAGING REPORT ---
RIGHT FINGER(S) MIN 2 VIEWS ROUTINE CLINICAL HISTORY: right thumb pain Right pain COMPARISON: None. DISCUSSION: Moderate generalized degenerative change. This is most prominent at the first carpometacarpal joint. Moderate degenerative changes seen at the metacarpal as well as interphalangeal joint. Mild reactive osteophytic changes present. Mild sclerosis of the articular services. Mild soft tissue vascular calcification. IMPRESSION: Moderate degenerative change. Mild soft tissue edema. Electronically signed by: Nilo Tenorio M.D. 03/23/2016 9:16 AM Dictated Date/Time: 03/23/2016 9:15 AM
--- NOTE | 2016-03-23 09:32 | DIAGNOSTIC IMAGING REPORT ---
RIGHT HAND 3 VIEWS HISTORY: right thumb pain Right COMPARISON: None. FINDINGS: No acute fracture or dislocation within the right hand. Small well-corticated ossific density dorsal to the carpal bones is consistent with an old injury. There are vascular calcifications. Faint chondrocalcinosis at the wrist. Moderate osteoarthritis at the DIP, PIP and MCP joints. Severe osteoarthritis at the first carpometacarpal joint. There is also severe osteoarthritis at the STT joint. No erosions identified. There is mild soft tissue swelling at the joints of the right hand. No radiopaque foreign bodies. IMPRESSION: 1. No acute fracture or dislocation within the right hand. 2. Moderate to severe osteoarthritis within the right hand and wrist as described above. 3. Faint chondrocalcinosis at the right wrist. Electronically signed by: Gulshan Abraham M.D. 03/23/2016 9:30 AM Dictated Date/Time: 03/23/2016 9:27 AM
--- NOTE | 2016-03-23 10:10 | History and Physical ---
History & Physical Date & Time of Service: Mar 23, 2016 at 09:31 Chief Complaint: Elevated Bp 180/110,Swollen Tongue,Hx Of Tia's Primary Care Physician: Zafar Lau M.D.(JENNA) History of Present Illness Source: patient, clinic records, hospital records This is a 65 year old male with PMH of HTN, Type 1 DM, nonobstructive CAD, HLD, COPD and history of tobacco use presents with multiple issues: states that last night, his tongue was swollen, about double the size it normally is. He does not recall any trauma to it; does not that he has some dental issues causing abrasions on the left lateral side of the tongue. He is on no new medications. The tongue swelling has since resolved. He also developed some chest tightness, which began this morning prior to arrival to the hospital. He states that yesterday he was chopping wood and did more than he normally does. He has underlying COPD and at times does get dyspnea with exertion, but this time developed chest tightness with exertion. That has also since resolved. He has had a dobutamine stress in 2014, which had to be stopped due to hypertensive episode. He had a Lexiscan which was negative. He also states he has chronic pain, multiple joints, including low back, for which he has had surgery in 2006 - also has right knee pain, for which he had a meniscal repair around 2003. He is also c/o right thumb pain; states that he is unable to do work due to this pain; was told he had a trigger finger and was set to see orthopedic surgery regarding this. He states that is taking 10mg of oxycodone and lidocaine patches, which do not seem to be working. He mentions that hydrocodone seemed to have worked better for him. His blood pressure was elevated on admission; he states that he is compliant with his home medications. He attributes elevated blood pressure to his pain not being controlled. Past Medical/Surgical History Medical Problems: (1) CAD (coronary artery disease) Status: Chronic (2) Diabetic polyneuropathy Status: Chronic (3) DM2 (diabetes mellitus, type 2) Status: Chronic (4) HLD (hyperlipidemia) Status: Chronic (5) HTN (hypertension) Status: Chronic (6) Neuropathy Status: Chronic (7) Stroke Status: Chronic Surgical Problems: (1) H/O cardiac catheterization Status: Resolved (2) H/O knee surgery Status: Chronic (3) History of lumbar fusion Status: Chronic (4) Hx of tonsillectomy Status: Chronic (5) S/P wrist surgery Status: Chronic Family History Diabetes mellitus MOTHER FH: lung disease MOTHER Gallbladder disease Heart disease Social History Smoking Status: Former Smoker Drug Use: none Marital Status: Occupational Status: retired, disabled Allergies Coded Allergies: No Known Allergies (Unverified , 03/23/16) Home Medications Scheduled Aspirin (Aspirin Chewable), 81 MG PO DAILY Atorvastatin (Lipitor), 40 MG PO DAILY Carvedilol (Coreg), 12.5 MG PO BID Insulin Aspart (Novolog Flexpen), 1 DOSE SC ACHS Insulin Glargine (Lantus Solostar), 22 UNITS SC HS Lidocaine (Lidoderm Patch 5%), 1 PATCH TOP DAILY Lisinopril (Lisinopril), 10 MG PO BID Metformin Hcl (Glucophage), 1,000 MG PO BIDM Nystatin (Nystatin Cream), 1 APPLN TOP BID Ropinirole HCl (Ropinirole HCl), 1 MG PO HS Triamcinolone Acet (Triamcinolone Acetonide), 1 APPLN TOP BID Scheduled PRN Gabapentin (Gabapentin), 800 MG PO TID PRN for Pain Nitroglycerin (Nitrostat), 0.4 MG UT UD PRN for Chest Pain Oxycodone/Acetaminophen 10MG/325MG (Percocet 10MG/325MG), 1 TAB PO DAILY PRN for Pain Review of Systems Constitutional: No chills, No fatigue, No fever, No sweats, No weakness, No weight loss ENT: + problem reported (tongue swelling, resolved) Respiratory: No cough, No dyspnea at rest, No dyspnea on exertion, No shortness of breath, No sputum, No wheezing Cardiovascular: + chest pain (chest tightness, resolved), No PND, No edema, No orthopnea, No palpitations Abdomen: No GI bleeding, No constipation, No diarrhea, No nausea, No pain, No vomiting Musculoskeletal: + joint pain (right knee, lower back, right thumb), No swelling Genitourinary - Male: No dysuria, No urinary frequency, No urinary urgency Neurologic: No balance problems, No numbness/tingling, No vertigo, No weakness Hematologic / Lymphatic: No abnormal bleeding/bruising Integumentary: No bleeding, No color change, No itch, No new/changing skin lesions, No rash Physical Exam Vital Signs Date Time Temp Pulse Resp B/P Pulse Ox O2 Delivery O2 Flow Rate FiO2 03/23/16 09:02 81 18 143/74 96 Room Air 03/23/16 07:52 76 18 166/87 93 Room Air 03/23/16 07:39 75 20 189/113 94 03/23/16 07:14 190/113 03/23/16 07:11 75 18 194/106 96 Room Air 03/23/16 07:10 77 03/23/16 05:46 37.0 80 18 160/93 97 Room Air General Appearance: no apparent distress Head: normocephalic, atraumatic Eyes: normal inspection ENT: hearing grossly normal Neck: supple Respiratory/Chest: lungs clear, normal breath sounds, no respiratory distress, no accessory muscle use Cardiovascular: regular rate, rhythm, no edema, no gallop, no JVD, no murmur, normal peripheral pulses Abdomen/GI: normal bowel sounds, non tender, soft, no organomegaly, no pulsatile mass Extremities/Musculoskelatal: no calf tenderness, normal capillary refill, no pedal edema, normal range of motion, + pertinent finding (painful and decreased ROM of the right thumb) 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 as tested, no motor/sensory deficits, alert, normal mood/affect, normal reflexes, oriented x 3 Skin: normal color Lymphatic: no adenopathy Diagnostics Laboratory Results Results Past 24 Hours Test 03/23/16 07:04 03/23/16 07:09 Range/Units White Blood Count 7.32 4.8-10.8 K/uL Red Blood Count 4.31 4.7-6.1 M/uL Hemoglobin 13.4 14.0-18.0 g/dL Hematocrit 37.5 42-52 % Mean Corpuscular Volume 87.0 80-100 fL Mean Corpuscular Hemoglobin 31.1 25-34 pg Mean Corpuscular Hemoglobin Concent 35.7 32-36 g/dl Platelet Count 156 130-400 K/uL Mean Platelet Volume 10.4 7.4-10.4 fL Neutrophils (%) (Auto) 56.3 % Lymphocytes (%) (Auto) 27.2 % Monocytes (%) (Auto) 6.3 % Eosinophils (%) (Auto) 9.3 % Basophils (%) (Auto) 0.8 % Neutrophils # (Auto) 4.12 1.4-6.5 K/uL Lymphocytes # (Auto) 1.99 1.2-3.4 K/uL Monocytes # (Auto) 0.46 0.11-0.59 K/uL Eosinophils # (Auto) 0.68 0-0.5 K/uL Basophils # (Auto) 0.06 0-0.2 K/uL RDW Standard Deviation 38.7 36.4-46.3 fL RDW Coefficient of Variation 12.0 11.5-14.5 % Immature Granulocyte % (Auto) 0.1 % Immature Granulocyte # (Auto) 0.01 0.00-0.02 K/uL Prothrombin Time 10.2 9.0-12.0 SECONDS Prothromb Time International Ratio 1.0 0.9-1.1 Activated Partial Thromboplast Time 23.6 21.0-31.0 SECONDS Partial Thromboplastin Ratio 0.9 Sodium Level 141 136-145 mmol/L Potassium Level 4.5 3.5-5.1 mmol/L Chloride Level 105 98-107 mmol/L Carbon Dioxide Level 26 21-32 mmol/L Anion Gap 10.0 3-11 mmol/L Blood Urea Nitrogen 24 7-18 mg/dl Creatinine 1.10 0.60-1.40 mg/dl Est Creatinine Clear Calc Drug Dose 77.7 ml/min Estimated GFR () 82.4 Estimated GFR (Non- 71.1 BUN/Creatinine Ratio 22.0 10-20 Random Glucose 238 70-99 mg/dl Calcium Level 8.6 8.5-10.1 mg/dl Bedside Troponin I 0.000 0-0.045 ng/ml CXR normal No change from prior EKG Impression Assessment and Plan This is a 65 year old male with PMH of HTN, Type 1 DM, nonobstructive CAD, HLD, COPD and history of tobacco use presents with chest tightness, chronic pain, elevated blood pressure, and swollen tongue - most of the symptoms have since resolved Chest Pain r/o ACS in the setting of nonobstructive CAD patient presented with some exertional chest tightness States he was working yesterday - [employer] in 2015 - negative initial cardiac enzymes negative EKG looks the same as previous one trend cardiac enzymes; echo last performed > 6 months prior; will obtain new echo Aspirin, b-rachell, statin cardiology consult for further input Tongue Swelling possible angioedema? uses lisinopril, recently changed from 20mg daily to 10mg BID has been using MARY-I for many years now with no side effects will change to ARB and monitor BP Hypertensive Urgency presented with BP > 200/100 At this point, we'll change MARY-I to ARB, Cozaar 25mg daily Coreg 12.5mg BID one dose of hydralazine 10mg IV monitor BP once pain is better controlled Right Thumb Pain patient has been having right thumb pain "locks up" and "clicks" with adduction of the thumb Painful and decreased ROM due to this Was scheduled to see an orthopedic surgeon later this month for this pain will obtain an X-ray and consult ortho for further input Chronic Low Back Pain prior surgery in 2006, fusion has been having difficulty with back pain changed oxycodone to hydrocodone monitor pain and may need pain management Chronic Right Knee Pain prior surgery in 2003 for meniscal repair will add voltaren gel for this pain cont. hydrocodone may need pain management if pain persists Type 1 DM patient now has an insulin pump, but has not been taught to use it yet was taking Lantus and novolog sliding scale - but ran out of medication has been using Novolin 70/30 - used 10 units BID yesterday, but BSGs dropped to the 60s with this While he is here, we can hold metformin; go back to Lantus and novolog sliding scale obtain Ha1c glycemic control consultation HLD check lipid panel in AM continue Lipitor COPD uses albuterol sparingly at home No shortness of breath DVT ppx Lovenox FULL CODE VTE Prophylaxis VTE Risk Assessment Done? Y/N: Yes Risk Level: Moderate
[2016-03-23 10:45] VITALS: BP 161/87; PULSE 71; TEMP 36.4; O2SAT 97; BMI 27.8
[2016-03-23 11:43] VITALS: BP 153/80; PULSE 66; TEMP 36.7; O2SAT 96
[2016-03-23] MEDS: HYDROCODONE/ACETAMI 10/325 TAB PO PRN (11:46)
[2016-03-23] MEDS: DICLOFENAC SOD 1% GEL 100 GM TUBE EXT SCH ×2 (11:48→20:54)
[2016-03-23] MEDS: LOSARTAN POTASSIUM 25 MG TAB PO SCH (11:48)
[2016-03-23] MEDS: ATORVASTATIN 40 MG TAB PO SCH (11:49)
[2016-03-23] MEDS: CARVEDILOL 12.5 MG TAB PO SCH ×2 (11:49→20:40)
[2016-03-23] MEDS: GABAPENTIN 800 MG TAB PO PRN ×2 (11:49→15:16)
[2016-03-23] MEDS: INSULIN ASPART 100 UNITS/ML 3 ML PEN SC SCH ×3 (11:57→20:47)
[2016-03-23] MEDS ORDERED: METHYLPREDNISOLONE ACETATE 80 MG/ML VIAL IA SCH (13:00)
[2016-03-23] MEDS ORDERED: BUPIVACAINE/EPINEPHRINE 0.5% MPF 1:200,000 30 ML VIAL INFIL SCH (13:00)
[2016-03-23] MEDS ORDERED: LIDOCAINE HCL 0.5% 50 ML SDV INFIL ONE (14:30)
[2016-03-23] MEDS ORDERED: TRIAMCINOLONE ACET 40 MG/ML VIAL IA ONE (14:30)
[2016-03-23] MEDS ORDERED: ETHYL CHLORIDE AER SPR 100 ML CAN EXT ONE (14:30)
--- NOTE | 2016-03-23 14:39 | CONSULTATION REPORT ---
DATE OF CONSULTATION: 03/23/2016 HISTORY OF PRESENT ILLNESS: The patient is a 65-year-old white male diabetic who presents for a consult with complaints of pain about his right thumb. He has an obvious locking trigger thumb. He is having pain radiating up into his forearm down to the level of the volar aspect of his flexor tendon and he has a palpable nodule on an obvious exam consistent with that of obvious flexure nodule consistent with that of a trigger thumb. I discussed the situation with the patient. He does relate having some fear of needles, but we discussed the option of injection versus taking anti-inflammatories and thought he would get better much quicker with an injection. We ordered the material to the bedside such that we can get this done. It was apparently ordered earlier, but is not there yet. So, the plan at this point is injection of the right trigger thumb and follow up as an outpatient.
[2016-03-23 14:49] VITALS: BP 163/83; PULSE 73; TEMP 36.4; O2SAT 97
--- NOTE | 2016-03-23 15:06 | CARDIOLOGY CONSULTATION ---
DATE OF CONSULTATION: 03/23/2016 REFERRING PHYSICIAN: Anabel lin. REASON FOR CONSULTATION: Chest pain. HISTORY OF PRESENT ILLNESS: This is a 65-year-old male patient who is a type 1 diabetic with a history of nonobstructive coronary artery disease and tobacco associated COPD. He has been followed by Dr. Oliveira through our clinic and was last seen there in December of 2014. At that time, he was doing well. According to records, he has had difficult to control hypertension. The patient was admitted through the Emergency Department with multiple somatic complaints, but is especially concerned regarding pain in his right thumb and first metacarpal area. Apparently, this has been going on for some time and he has not been able to get into an orthopedic surgeon to have it looked at. He also has some other somatic complaints of his left hand. He also noted that his tongue was swollen yesterday, which he states is due to bad dentition and possible injury from scraping his tongue. His speech has been difficult because of the injury to his tongue. The swelling in his tongue has gone down and he is able to speak normally. He flatly denies any chest pain. He says on occasion, he may get some discomfort at peak activity levels, but in general has been doing well since his last visit with Dr. Oliveira in 2014. His admission EKG is unchanged from his previous showing an incomplete right bundle-branch block. Thus far, his cardiac markers have been negative. ALLERGIES: No known medical allergies. PAST MEDICAL HISTORY: As outlined above, the patient is a type 1 diabetic with a history of cigarette smoking and tobacco associated lung disease. He has a known coronary artery disease, which was nonobstructive by cardiac catheterization. He has diabetic neuropathy. He has had difficult to control hypertension. FAMILY MEDICAL HISTORY: Significant for diabetes on his mother's side. SOCIAL HISTORY: He is a former smoker. He is , retired and on disability. REVIEW OF SYSTEMS: A 10-point review of systems is negative except for the history of chief complaint. PHYSICAL EXAMINATION: GENERAL: He is alert and oriented, in no acute distress. VITAL SIGNS: Blood pressure is 140/70, pulse is regular at 80 beats per minute. He is afebrile. HEENT: Normocephalic. Pupils are equal and reactive to light. He has bad dentition. NECK: The neck veins are flat. Carotids have good upstrokes bilaterally without bruits. Thyroid is nonpalpable. RESPIRATORY: Breath sounds equal bilaterally and clear to auscultation. CARDIOVASCULAR: Heart has a regular rhythm. Normal S1 and S2. No S3 or S4. No cardiac rubs or murmurs. GASTROINTESTINAL: Abdomen is soft and nontender without organomegaly. EXTREMITIES: Free of edema, digit clubbing, or cyanosis. NEUROLOGIC: Grossly intact. SKIN: Warm to touch. LYMPH NODES: Negative to palpation. IMPRESSION: 1. Atypical chest pain. 2. Stable EKG with an incomplete right bundle-branch block. 3. Type 1 diabetes. 4. History of cigarette smoking with tobacco associated lung disease. 5. Poor dentition. 6. Difficult to control hypertension. RECOMMENDATIONS: From a cardiac standpoint, I do not believe any additional testing is indicated and the patient may be discharged to outpatient followup if his second set of cardiac markers are negative. One might consider having him see an orthopedic surgeon while he is here in the hospital as he has had difficulty getting an appointment as an outpatient. I counseled him regarding his poor dentition and the need to see a dentist.
--- NOTE | 2016-03-23 15:10 | Pharmacy Progress Note ---
Glycemic Control Intl Consult Date of Service Mar 23, 2016. Scope Glycemic Pharmacist consulted for glycemic control and to write orders per [facility] inpatient glycemic control protocol Objective Weight (Kilograms): 95.600 Accuchecks BSG (last 24hrs): Test 03/23/16 07:04 03/23/16 11:09 Random Glucose 238 mg/dl (70-99) Bedside Glucose 243 mg/dl (70-99) Laboratory Data (last 24hrs) Test 03/23/16 07:04 Anion Gap 10.0 mmol/L BUN/Creatinine Ratio 22.0 Blood Urea Nitrogen 24 mg/dl Creatinine 1.10 mg/dl Potassium Level 4.5 mmol/L Sodium Level 141 mmol/L White Blood Count 7.32 K/uL Red Blood Count 4.31 M/uL Hemoglobin 13.4 g/dL Hematocrit 37.5 % Mean Corpuscular Volume 87.0 fL Mean Corpuscular Hemoglobin 31.1 pg Mean Corpuscular Hemoglobin Concent 35.7 g/dl Platelet Count 156 K/uL Mean Platelet Volume 10.4 fL Neutrophils (%) (Auto) 56.3 % Lymphocytes (%) (Auto) 27.2 % Monocytes (%) (Auto) 6.3 % Eosinophils (%) (Auto) 9.3 % Basophils (%) (Auto) 0.8 % Neutrophils # (Auto) 4.12 K/uL Lymphocytes # (Auto) 1.99 K/uL Monocytes # (Auto) 0.46 K/uL Eosinophils # (Auto) 0.68 K/uL Basophils # (Auto) 0.06 K/uL HbA1c 7.7% on 02/08/16 Recent Pertinent Medications Outpatient Anti-diabetic Regimen: * Lantus 22 units SQ HS * Metformin 1,000mg PO BIDM * NovoLog per scale * CF = 50 * Carb Ratio = 15 Assessment & Plan ASSESSMENT: * 65yo T2DM male with adequately controlled diabetes as an outpatient per recent A1c * Will use SQ basal bolus insulin regimen for inpatient use. Hold oral agents as they are not easily titratable in acute situations and have drug/disease interactions. May resume metformin at discharge * Outpatient regimen is similar to weight based insulin dosing regimen. Will continue outpatient basal insulin dosing but use a slightly more aggressive bolus insulin regimen for increased stress d/t illness. * ADA & AACE recommend a goal blood sugar range 140-180 mg/dl for the majority of critically ill & non-critically ill patients. However, more stringent targets may be selected in individual cases. Will utilize more stringent target of 110-140mg/dl based on age and tight degree of outpatient control. PLAN FOR INPATIENT GLYCEMIC CONTROL: * Hold outpatient oral diabetes medications * Basal insulin with LANTUS 22 units SQ HS * Correctional Insulin with NOVOLOG per scale ACHS or Q6hrs while NPO * Goal Range: Low 110 mg/dL - High 140 mg/dL * Correction Factor: 25 mg/dL/unit * Nutritional / Prandial insulin per carb ratio of 1 unit per 8 grams CHO consumed * Please note that the plan above was derived based on current level of insulin resistance and hospital stress. These recommendations are appropriate for inpatient admission only. Plan of care upon discharge will need to be reassessed to avoid potential outpatient hypo/hyperglycemia. Thank you.
[2016-03-23 15:27] VITALS: BMI 27.8
[2016-03-23 16:21] LABS: CKMB/CK RATIO 4.2 (0-3.0)
[2016-03-23] MEDS ORDERED: INSULIN GLARGINE SOLOSTAR 100 UNITS/ML 3 ML PEN SC SCH (16:45)
[2016-03-23 20:00] VITALS: BP 157/88; TEMP 36.6; O2SAT 96
[2016-03-23] MEDS ORDERED: ROPINIROLE HCL 1 MG TAB PO SCH (21:00)
[2016-03-23] MEDS ORDERED: ENOXAPARIN 40 MG/0.4 ML SYR SC SCH (21:00)
[2016-03-23 23:21] LABS: CKMB/CK RATIO 3.1 (0-3.0)
[2016-03-24] VITALS: O2SAT 95
[2016-03-24 00:17] VITALS: BP 127/74; PULSE 68; TEMP 36.9; O2SAT 95
[2016-03-24 04:00] VITALS: BP 136/77; PULSE 72; TEMP 36.8; O2SAT 95
[2016-03-24] MEDS: HYDROCODONE/ACETAMI 10/325 TAB PO PRN (06:02)
[2016-03-24 06:19] LABS: HEMATOCRIT 35.1 % (42-52); MEAN CELL VOLUME 87.1 fL (80-100); MEAN CORPUSCULAR HEMOGLOBIN 30.8 pg (25-34); MEAN CORPUSCULAR HGB CONC 35.3 g/dl (32-36); MEAN PLATELET VOLUME 10.9 fL (7.4-10.4); PLATELET COUNT 152 K/uL (130-400); RED BLOOD COUNT 4.03 M/uL (4.7-6.1); WHITE BLOOD COUNT 6.37 K/uL (4.8-10.8)
[2016-03-24 06:49] LABS: BUN/CREATININE RATIO 18.6 (10-20); CALCIUM 8.3 mg/dl (8.5-10.1); MAGNESIUM 1.6 mg/dl (1.8-2.4); POTASSIUM 4.2 mmol/L (3.5-5.1)
[2016-03-24 06:59] LABS: CHOLESTEROL/HDL RATIO 2.2
[2016-03-24 07:17] LABS: ESTIMATED AVERAGE GLUCOSE 160 mg/dl; HA1C FLAG Normal (Normal)
[2016-03-24] MEDS: CARVEDILOL 12.5 MG TAB PO SCH (07:44)
[2016-03-24] MEDS: LOSARTAN POTASSIUM 25 MG TAB PO SCH (07:45)
[2016-03-24] MEDS: GABAPENTIN 800 MG TAB PO PRN (07:45)
[2016-03-24] MEDS: ATORVASTATIN 40 MG TAB PO SCH (07:45)
[2016-03-24] MEDS: TRIAMCINOLONE ACET 0.1% OINT 15 GM TUBE TOP SCH (07:46)
[2016-03-24] MEDS: INSULIN ASPART 100 UNITS/ML 3 ML PEN SC SCH ×2 (07:51→11:49)
[2016-03-24] MEDS: DICLOFENAC SOD 1% GEL 100 GM TUBE EXT SCH (07:55)
[2016-03-24 08:00] VITALS: BP 170/91; PULSE 71; TEMP 36.9; O2SAT 93
[2016-03-24] MEDS ORDERED: ASPIRIN 81 MG ECTAB PO SCH (09:00)
--- NOTE | 2016-03-24 09:53 | Progress Note ---
Subjective Date of Service: Mar 24, 2016. Subjective Pt evaluation today including: conversation w/ patient, physical exam, lab review, review of studies, review of inpatient medication list Saw/examined the patient in room 229 He is doing well, no chest pain, no shortness of breath Eager to get home Wants to get his right thumb joint injection prior to discharge Problem List Medical Problems: (1) Angioedema Status: Acute (2) Chest wall pain Status: Acute (3) Chronic knee pain Status: Acute (4) Exertional chest pain Status: Acute (5) Poorly-controlled hypertension Status: Acute (6) Shortness of breath Status: Acute Review of Systems Constitutional: No weakness Respiratory: No cough, No dyspnea at rest, No dyspnea on exertion, No shortness of breath, No sputum, No wheezing Cardiac: No PND, No chest pain, No claudication, No edema, No orthopnea, No palpitations Abdomen: No diarrhea, No nausea, No pain, No vomiting Musculoskeletal: + joint pain (right thumb) Medications Current Inpatient Medications Medications (Trade) Dose Ordered Sig/Cari Route Start Time Stop Time Status Last Admin Dose Admin Enoxaparin Sodium 40 mg 40 mg Q24H SC 03/23/16 21:00 04/22/16 20:59 03/23/16 20:41 40 MG Sodium Chloride (Nss 1000ml) 1,000 ml @ 80 mls/hr [id number] IV 03/23/16 08:42 04/22/16 08:41 Acetaminophen (Tylenol Tab) 650 mg Q4H PRN PO 03/23/16 08:45 04/22/16 08:44 Al Hydrox/Mg Hydrox/Simethicone (Maalox Max Susp) 15 ml Q4H PRN PO 03/23/16 08:45 04/22/16 08:44 Magnesium Hydroxide (Milk Of Magnesia Susp) 30 ml Q12H PRN PO 03/23/16 08:45 04/22/16 08:44 Ondansetron HCl (Zofran Inj) 4 mg Q6H PRN IV 03/23/16 08:45 04/22/16 08:44 Nitroglycerin (Nitrostat Tab) 0.4 mg UD PRN SL 03/23/16 08:45 04/22/16 08:44 Morphine Sulfate (MoRPHine SULFATE INJ) 2 mg Q30M PRN IV 03/23/16 08:45 04/06/16 08:44 03/23/16 20:48 2 MG Polyethylene (Miralax Powder Packet) 17 gm DAILY PRN PO 03/23/16 08:45 04/22/16 08:44 Insulin Aspart (novoLOG ASPART) SLIDING SCALE If C... ACHS SC 03/23/16 11:00 04/22/16 10:59 03/24/16 07:51 9 UNITS Glucose (Glucose 40% Gel) 15-30 GRAMS 15 GRAMS... UD PRN PO 03/23/16 08:45 04/22/16 08:44 Glucose (Glucose Chew Tab) 4-8 Tablets 4 Tabl... UD PRN PO 03/23/16 08:45 04/22/16 08:44 Dextrose (Dextrose 50% 50ML Syringe) 25-50ML OF 50% DW IV FOR... UD PRN IV 03/23/16 08:45 04/22/16 08:44 Glucagon (Glucagon Inj) 1 mg UD PRN SQ 03/23/16 08:45 04/22/16 08:44 Miscellaneous Information (Consult Glycemic Management Pharmacy) 1 ea UD PRN N/A 03/23/16 09:10 04/22/16 09:09 Aspirin (Ecotrin Tab) 81 mg QAM PO 03/24/16 09:00 04/23/16 08:59 03/24/16 07:46 81 MG Atorvastatin Calcium (Lipitor Tab) 40 mg DAILY PO 03/23/16 09:00 04/22/16 08:59 03/24/16 07:45 40 MG Carvedilol (Coreg Tab) 12.5 mg BID PO 03/23/16 09:00 04/22/16 08:59 03/24/16 07:44 12.5 MG Gabapentin (Neurontin Tab) 800 mg TID PRN PO 03/23/16 09:00 04/22/16 08:59 03/24/16 07:45 800 MG Ropinirole HCl (Requip Tab) 1 mg HS PO 03/23/16 21:00 04/22/16 20:59 03/23/16 20:40 1 MG Triamcinolone Acetonide (Kenalog 0.1% Oint) 1 appln BID TOP 03/23/16 09:00 04/22/16 08:59 03/24/16 07:46 1 APPLN Acetaminophen/ Hydrocodone Bitart ([place] 10/325 Tab) 1 tab Q6 PRN PO 03/23/16 09:00 04/06/16 08:59 03/24/16 06:02 1 TAB Diclofenac Sodium (Voltaren 1% Top Gel) 1 appln BID EXT 03/23/16 09:00 04/22/16 08:59 03/24/16 07:55 1 APPLN Losartan Potassium (coZAAR TAB) 25 mg QAM PO 03/23/16 09:00 04/22/16 08:59 03/24/16 07:45 25 MG Miscellaneous (Iv Fluids Completed) 1 ea PRN PRN N/A 03/23/16 09:15 03/23/17 09:14 Insulin Glargine (Lantus Solostar Pen) 25 unit HS SC 03/24/16 16:45 04/23/16 16:44 Objective Vital Signs Date Time Temp Pulse Resp B/P Pulse Ox O2 Delivery O2 Flow Rate FiO2 03/24/16 08:00 36.9 71 18 170/91 93 Room Air 03/24/16 08:00 93 Room Air 03/24/16 04:00 95 Room Air 03/24/16 04:00 36.8 72 12 136/77 95 Room Air 03/24/16 00:17 36.9 68 18 127/74 95 Room Air 03/24/16 00:00 95 Room Air 03/23/16 20:00 96 Room Air 03/23/16 20:00 36.6 157/88 96 Room Air 03/23/16 16:00 Room Air 03/23/16 14:49 36.4 73 12 163/83 97 Room Air 03/23/16 12:00 Room Air 03/23/16 11:43 36.7 66 17 153/80 96 Room Air 03/23/16 10:45 36.4 71 18 161/87 97 Room Air 03/23/16 10:14 140/88 03/23/16 10:02 67 18 137/85 93 Room Air Physical Exam General Appearance: no apparent distress Respiratory/Chest: lungs clear, normal breath sounds, no respiratory distress, no accessory muscle use Cardiovascular: regular rate, rhythm, no edema, no murmur Abdomen: normal bowel sounds, non tender, soft Extremities: normal inspection, no pedal edema, + pertinent finding (right thumb decreased/painful ROM) Neurologic/Psychiatric: no motor/sensory deficits, alert, normal mood/affect Laboratory Results Last 24 Hours Test 03/23/16 11:09 03/23/16 15:25 03/23/16 16:02 03/23/16 20:32 Bedside Glucose 243 mg/dl 195 mg/dl 208 mg/dl Total Creatine Kinase 106 U/L Creatine Kinase MB 4.4 ng/ml Creatine Kinase MB Ratio 4.2 Troponin I < 0.015 ng/ml Test 03/23/16 22:40 03/24/16 05:34 03/24/16 06:34 Total Creatine Kinase 100 U/L Creatine Kinase MB 3.1 ng/ml Creatine Kinase MB Ratio 3.1 Troponin I < 0.015 ng/ml White Blood Count 6.37 K/uL Red Blood Count 4.03 M/uL Hemoglobin 12.4 g/dL Hematocrit 35.1 % Mean Corpuscular Volume 87.1 fL Mean Corpuscular Hemoglobin 30.8 pg Mean Corpuscular Hemoglobin Concent 35.3 g/dl RDW Standard Deviation 38.9 fL RDW Coefficient of Variation 12.1 % Platelet Count 152 K/uL Mean Platelet Volume 10.9 fL Sodium Level 143 mmol/L Potassium Level 4.2 mmol/L Chloride Level 108 mmol/L Carbon Dioxide Level 27 mmol/L Anion Gap 8.0 mmol/L Blood Urea Nitrogen 19 mg/dl Creatinine 1.00 mg/dl Est Creatinine Clear Calc Drug Dose 85.4 ml/min Estimated GFR () 92.4 Estimated GFR (Non- 79.7 BUN/Creatinine Ratio 18.6 Random Glucose 163 mg/dl Estimated Average Glucose 160 mg/dl Hemoglobin A1c 7.2 % Calcium Level 8.3 mg/dl Magnesium Level 1.6 mg/dl Triglycerides Level 118 mg/dl Cholesterol Level 92 mg/dl HDL Cholesterol 42 mg/dl LDL Cholesterol, Calculated 26 mg/dl VLDL Cholesterol, Calculated 24 mg/dl Cholesterol/HDL Ratio 2.2 Thyroid Stimulating Hormone (TSH) 1.000 uIu/ml Bedside Glucose 175 mg/dl Assessment and Plan This is a 65 year old male with PMH of HTN, Type 1 DM, nonobstructive CAD, HLD, COPD and history of tobacco use presents with chest tightness, chronic pain, elevated blood pressure, and swollen tongue - most of the symptoms have since resolved Chest Pain r/o ACS in the setting of nonobstructive CAD 03/24 appreciate cardiology input no EKG changes, cardiac enzymes negative x 3 no further testing required likely related to exertion/musculoskeletal/dyspnea related 03/23 patient presented with some exertional chest tightness 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 uses lisinopril, recently changed from 20mg daily to 10mg BID has been using MARY-I for many years now with no side effects will change to ARB and monitor BP Hypertensive Urgency presented with BP > 200/100 At this point, we'll change MARY-I to ARB, Cozaar 25mg daily Coreg 12.5mg BID one dose of hydralazine 10mg IV monitor BP once pain is better controlled Right Thumb Trigger Joint 03/24 plan is for joint injection today monitor blood sugars discharge home today 03/23 patient has been having right thumb pain "locks up" and "clicks" with adduction of the thumb Painful and decreased ROM due to this Was scheduled to see an orthopedic surgeon later this month for this pain will obtain an X-ray and consult ortho for further input Chronic Low Back Pain prior surgery in 2006, fusion has been having difficulty with back pain changed oxycodone to hydrocodone monitor pain and may need pain management Chronic Right Knee Pain prior surgery in 2003 for meniscal repair will add voltaren gel for this pain cont. hydrocodone may need pain management if pain persists Type 1 DM patient now has an insulin pump, but has not been taught to use it yet was taking Lantus and novolog sliding scale - but ran out of medication has been using Novolin 70/30 - used 10 units BID yesterday, but BSGs dropped to the 60s with this While he is here, we can hold metformin; go back to Lantus and novolog sliding scale obtain Ha1c glycemic control consultation HLD check lipid panel in AM continue Lipitor COPD uses albuterol sparingly at home No shortness of breath DVT ppx Lovenox FULL CODE
[2016-03-24 10:37] VITALS: BP 171/98; PULSE 66; TEMP 36.6; O2SAT 96
[2016-03-24] MEDS: MAGNESIUM SULFATE 1GM / D5W 1 GM in PREMIXED IN D5W 100 ML IV SCH ×2 (10:57→12:03)
[2016-03-24 11:13] VITALS: Ht 185.4 cm; Wt 93.0 kg
--- NOTE | 2016-03-24 11:48 | Pharmacy Progress Note ---
Glycemic Control: Progress Nt Date of Service Mar 24, 2016. Scope Glycemic Pharmacist consulted for glycemic control and to write orders per [facility] inpatient glycemic control protocol. Objective Accuchecks BSG (last 24hrs): Test 03/23/16 16:02 03/23/16 20:32 03/24/16 05:34 03/24/16 06:34 Bedside Glucose 195 mg/dl (70-99) 208 mg/dl (70-99) 175 mg/dl (70-99) Random Glucose 163 mg/dl (70-99) Laboratory Data (last 24hrs) Test 03/24/16 05:34 Anion Gap 8.0 mmol/L BUN/Creatinine Ratio 18.6 Blood Urea Nitrogen 19 mg/dl Creatinine 1.00 mg/dl Hemoglobin A1c 7.2 % Potassium Level 4.2 mmol/L Sodium Level 143 mmol/L White Blood Count 6.37 K/uL HbA1c: Test 03/24/16 05:34 Hemoglobin A1c 7.2 % (4.5-5.6) H Recent Pertinent Medications Outpatient Anti-diabetic Regimen: See paraeducator note from 03/24 re: recent outpatient regimen * Lantus 22 units SQ HS * Metformin 1,000mg PO BIDM * NovoLog per scale * CF = 50 * Carb Ratio = 15 Assessment & Plan ASSESSMENT: * 65yo T2DM male with adequately controlled diabetes as an outpatient per recent A1c = 7.2% today * Pt to change to insulin pump for outpatient therapy but has not had adequate training on it yet. Pt ran out of Lantus/NovoLog and therefore used OTC Novolin 70/30 [employer] LEAK TESTER. * Currently dosing SQ basal bolus insulin based on weight and moderate stress. Holding oral agents as they are not easily titratable in acute situations and have drug/disease interactions. May resume metformin at discharge * Pt has received ~ 50 units of insulin while in house (of note, pt took ~ 20 units of Novolin 70/30 [employer]IC[employer]ACK[employer] LEAK TESTER, therefore, total daily dose over the past day is actually closer to 70 units) * BSGS [phone] * All BSGs are above goal range. Will increase regimen accordingly (both basal + prandial/correctional insulin components) and continue to titrate based on BSG trends * ADA & AACE recommend a goal blood sugar range 140-180 mg/dl for the majority of critically ill & non-critically ill patients. However, more stringent targets may be selected in individual cases. Will utilize more stringent target of 110-140mg/dl based on age and tight degree of outpatient control. PLAN FOR INPATIENT GLYCEMIC CONTROL: * Hold outpatient oral diabetes medications * INCREASE Basal insulin with LANTUS 25 units SQ HS * TIGHTEN Correctional Insulin with NOVOLOG per scale ACHS or Q6hrs while NPO * Goal Range: Low 110 mg/dL - High 140 mg/dL * Correction Factor: 20 mg/dL/unit * Nutritional / Prandial insulin per carb ratio of 1 unit per 7 grams CHO consumed * Please note that the plan above was derived based on current level of insulin resistance and hospital stress. These recommendations are appropriate for inpatient admission only. Plan of care upon discharge will need to be reassessed to avoid potential outpatient hypo/hyperglycemia. Thank you.
--- NOTE | 2016-03-24 13:28 | Procedure Note ---
Procedure Note Procedure Date Mar 24, 2016. 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 band aid applied to injection site. Complications: none Patient tolerated procedure: well Post-procedure vital signs: reviewed and stable
--- NOTE | 2016-03-24 13:30 | Orthopedic Progress Note ---
Orthopedic Progress Note Date of Service Mar 24, 2016. Subjective Reports: feeling well Additional Notes: thumb painful, clicking and catching. Objective positive tenderness [id number] right thumb, painful clicking with motion. Date Time Temp Pulse Resp B/P Pulse Ox O2 Delivery O2 Flow Rate FiO2 03/24/16 12:00 Room Air 03/24/16 10:37 36.6 66 20 171/98 96 Room Air 03/24/16 08:00 36.9 71 18 170/91 93 Room Air 03/24/16 08:00 93 Room Air 03/24/16 04:00 95 Room Air 03/24/16 04:00 36.8 72 12 136/77 95 Room Air 03/24/16 00:17 36.9 68 18 127/74 95 Room Air 03/24/16 00:00 95 Room Air 03/23/16 20:00 96 Room Air 03/23/16 20:00 36.6 157/88 96 Room Air 03/23/16 16:00 Room Air 03/23/16 14:49 36.4 73 12 163/83 97 Room Air Laboratory Results 24 Hours: Test 03/24/16 05:34 Hematocrit 35.1 % Hemoglobin 12.4 g/dL Assessment & Plan Assessment: Right Trigger Thumb -give cortisone injection today, may use thumb as tolerated. has appointment in a couple weeks at [facility], will cancel appointment if his symptoms are resolved after the injection, will keep appt if no relief, discussed A1 catalino release if no relief as out patient.
[2016-03-24] MEDS ORDERED: CZR25 PO (13:37)
--- NOTE | 2016-03-24 13:39 | Discharge Instructions ---
Discharge Instructions Admission Reason for Admission: Exertional Chest Pain Discharge Discharge Diagnosis / Problem: Exertional Chest Pain, likely dyspnea/ musculoskeletal Discharge Goals Goal(s): Decrease discomfort, Improve function Activity Recommendations Activity Limitations: resume your previous activity . Instructions / Follow-Up Instructions / Follow-Up Please follow-up with Dr. Lau on March 31 @ 11:10AM * Please stop taking lisinopril, you will be changed to losartan in place of this * PCP should follow-up on echo results Current Hospital Diet Patient's current hospital diet: AHA Diet (Heart Healthy), Diabetes Type 2 Diet Discharge Diet Recommended Diet: AHA Diet (Heart Healthy) Pending Studies Studies pending at discharge: yes List of pending studies: echo results pending Laboratory Results Hemoglobin A1c Test 03/24/16 05:34 Range/Units Estimated Average Glucose 160 mg/dl Hemoglobin A1c 7.2 H 4.5-5.6 % Lipid Panel Test 03/24/16 05:34 Range/Units Triglycerides Level 118 0-150 mg/dl Cholesterol Level 92 0-200 mg/dl HDL Cholesterol 42 mg/dl Cholesterol/HDL Ratio 2.2 LDL Cholesterol, Calculated 26 mg/dl Medical Emergencies . Who to Call and When: Medical Emergencies: If at any time you feel your situation is an emergency, please call 911 immediately. . Non-Emergent Contact Non-Emergency issues call your: Primary Care Provider . . "Provider Documentation" section prepared by Nathaly Perera. VTE Core Measure Inpt VTE Proph given/why not?: Enoxaparin (Lovenox)SQ
--- NOTE | 2016-03-24 13:41 | Discharge Summary ---
Discharge Summary Admission Date: Mar 23, 2016 at 08:50 Discharge Date: Mar 24, 2016 Discharge Disposition: Home Principal Diagnosis: Exertional Chest pain, unlikely ACS Right Thumb Trigger Finger Medication Reconciliation New Medications: Losartan Potassium (Losartan Potassium) 25 Mg Tab 25 MG PO QAM for 30 Days, #30 TAB Continued Medications: Aspirin (Aspirin Chewable) 81 Mg Chew 81 MG PO DAILY Atorvastatin (Lipitor) 40 Mg Tab 40 MG PO DAILY Carvedilol (Coreg) 12.5 Mg Tab 12.5 MG PO BID TAKE THIS MEDICATION WITH FOOD Gabapentin (Gabapentin) 800 Mg Tab 800 MG PO TID PRN for Pain Insulin Aspart (Novolog Flexpen) 100 Units/Ml Inj 1 DOSE SC ACHS COVERAGE DIRECTED BY FOLLOWING SLIDING SCALE: 151 - 200 1 UNIT 201 - 250 2 UNITS 251 - 300 3 UNITS 301 - 350 4 UNITS 351 + 5 UNITS CARB RATIO 1:15 AND 1:50 CORRECTION FACTOR OVER 100 Insulin Glargine (Lantus Solostar) 100 Unit/Ml Inj 22 UNITS SC HS, PEN Lidocaine (Lidoderm Patch 5%) 1 Ea Tdsy 1 PATCH TOP DAILY Metformin Hcl (Glucophage) 1,000 Mg Tab 1000 MG PO BIDM, TAB Nitroglycerin (Nitrostat) 0.4 Mg Sub 0.4 MG UT UD PRN for Chest Pain PLACE ONE TABLET UNDER THE TONGUE EVERY 5 MINUTES FOR UP TO 3 DOSES IF NEEDED FOR CHEST PAIN Nystatin (Nystatin Cream) 90 Appln/30 Gm Cr 1 APPLN TOP BID APPLY TO AFFECTED AREA DIRECTED FOR UP TO 2 WEEKS Oxycodone/Acetaminophen 10MG/325MG (Percocet 10MG/325MG) Tab 1 TAB PO DAILY PRN for Pain, TAB Ropinirole HCl (Ropinirole HCl) 1 Mg Tab 1 MG PO HS TAKE THIS MEDICATION 1 TO 3 HOURS BEFORE BEDTIME WITH FOOD Triamcinolone Acet (Triamcinolone Acetonide) 45 Appln/15 Gm Oint 1 APPLN TOP BID APPLY TO AFFECTED AREA UP TO 2X/DAY Discontinued Medications: Lisinopril (Lisinopril) 20 Mg Tab 10 MG PO BID Admission Information HPI (per Admitting provider): This is a 65 year old male with PMH of HTN, Type 1 DM, nonobstructive CAD, HLD, COPD and history of tobacco use presents with multiple issues: states that last night, his tongue was swollen, about double the size it normally is. He does not recall any trauma to it; does not that he has some dental issues causing abrasions on the left lateral side of the tongue. He is on no new medications. The tongue swelling has since resolved. He also developed some chest tightness, which began this morning prior to arrival to the hospital. He states that yesterday he was chopping wood and did more than he normally does. He has underlying COPD and at times does get dyspnea with exertion, but this time developed chest tightness with exertion. That has also since resolved. He has had a dobutamine stress in 2014, which had to be stopped due to hypertensive episode. He had a Lexiscan which was negative. He also states he has chronic pain, multiple joints, including low back, for which he has had surgery in 2006 - also has right knee pain, for which he had a meniscal repair around 2003. He is also c/o right thumb pain; states that he is unable to do work due to this pain; was told he had a trigger finger and was set to see orthopedic surgery regarding this. He states that is taking 10mg of oxycodone and lidocaine patches, which do not seem to be working. He mentions that hydrocodone seemed to have worked better for him. His blood pressure was elevated on admission; he states that he is compliant with his home medications. He attributes elevated blood pressure to his pain not being controlled. Physical Exam (per Admitting): General Appearance: no apparent distress Head: normocephalic, atraumatic Eyes: normal inspection ENT: hearing grossly normal Neck: supple Respiratory/Chest: lungs clear, normal breath sounds, no respiratory distress, no accessory muscle use Cardiovascular: regular rate, rhythm, no edema, no gallop, no JVD, no murmur , normal peripheral pulses Abdomen/GI: normal bowel sounds, non tender, soft, no organomegaly, no pulsatile mass Extremities/Musculoskelatal: no calf tenderness, normal capillary refill, no pedal edema, normal range of motion, + pertinent finding (painful and decreased ROM of the right thumb) Neurologic/Psych: can solderer II-XII nml as tested, no motor/sensory deficits, alert , normal mood/affect, normal reflexes, oriented x 3 Skin: normal color Lymphatic: no adenopathy Hospital Course This is a 65 year old male with PMH of HTN, Type 1 DM, nonobstructive CAD, HLD, COPD and history of tobacco use presents with chest tightness, chronic pain, elevated blood pressure, and swollen tongue - most of the symptoms have since resolved Chest Pain r/o ACS in the setting of nonobstructive CAD 03/24 appreciate cardiology input no EKG changes, cardiac enzymes negative x 3 no further testing required likely related to exertion/musculoskeletal/dyspnea related 03/23 patient presented with some exertional chest tightness 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 uses lisinopril, recently changed from 20mg daily to 10mg BID has been using MARY-I for many years now with no side effects will change to ARB and monitor BP Hypertensive Urgency presented with BP > 200/100 At this point, we'll change MARY-I to ARB, Cozaar 25mg daily Coreg 12.5mg BID one dose of hydralazine 10mg IV monitor BP once pain is better controlled Right Thumb Trigger Joint 03/24 plan is for joint injection today monitor blood sugars discharge home today 03/23 patient has been having right thumb pain "locks up" and "clicks" with adduction of the thumb Painful and decreased ROM due to this Was scheduled to see an orthopedic surgeon later this month for this pain will obtain an X-ray and consult ortho for further input Chronic Low Back Pain prior surgery in 2006, fusion has been having difficulty with back pain changed oxycodone to hydrocodone monitor pain and may need pain management Chronic Right Knee Pain prior surgery in 2003 for meniscal repair will add voltaren gel for this pain cont. hydrocodone may need pain management if pain persists Type 1 DM patient now has an insulin pump, but has not been taught to use it yet was taking Lantus and novolog sliding scale - but ran out of medication has been using Novolin 70/30 - used 10 units BID yesterday, but BSGs dropped to the 60s with this While he is here, we can hold metformin; go back to Lantus and novolog sliding scale obtain Ha1c glycemic control consultation HLD check lipid panel in AM continue Lipitor COPD uses albuterol sparingly at home No shortness of breath DVT ppx Lovenox FULL CODE Total time spent on discharge = 25 minutes This includes examination of the patient, discharge planning, medication reconciliation, and communication with other providers. Discharge Instructions Please follow-up with Dr. Lau on March 31 @ 11:10AM * Please stop taking lisinopril, you will be changed to losartan in place of this * PCP should follow-up on echo results
[2016-03-24 15:25] VITALS: BP 171/98; PULSE 66; TEMP 36.6; O2SAT 96
[2016-03-24] MEDS ORDERED: INSULIN GLARGINE SOLOSTAR 100 UNITS/ML 3 ML PEN SC SCH (16:45)
--- NOTE | 2016-03-24 17:11 | ECHOCARDIOGRAM REPORT ---
*NOTICE TO RECEIVING REPUBLICAN AGENCY This information is strictly Confidential and protected under [place] law. [place] law prohibits you from making any further disclosure of this information unless further disclosure is expressly permitted by the written consent of the person to whom it pertains or is authorized by law. A general authorization for the release of medical or other information is not sufficient for this purpose. Hospital accepts no responsibility if the information is made available to any other person, INCLUDING THE PATIENT. Interpretation Summary * Name: NAVEED ARRIAGA Study Date: 03/24/2016 03:48 PM BP: 171/98 mmHg * Patient Location: [facility] HR: 66 * : 1950 (M/d/yyyy) Gender: Male Height: 70 in * Age: 65 yrs Ethnicity: CA Weight: 210 lb * Ordering Physician: Nathaly Perera * Performed By: Chichi Miguel * * Reason For Study: CHEST PAIN * BSA: 2.1 m2 * -- Conclusions -- * The left ventricle is normal in size. * Ejection Fraction = 65-70%. * The left ventricular wall motion is normal. * The right ventricular systolic function is normal. * The left atrial size is normal. * Right atrial size is normal. * Aortic valve sclerosis mild, without significant aortic valvular stenosis. Procedure Details * A complete two-dimensional transthoracic echocardiogram was performed (2D, M-mode, Doppler and color flow Doppler). Left Ventricle * The left ventricle is normal in size. * There is normal left ventricular wall thickness. * Ejection Fraction = 65-70%. * The left ventricular wall motion is normal. Right Ventricle * The right ventricle is normal size. * The right ventricular systolic function is normal. Atria * The left atrial size is normal. * Right atrial size is normal. * The interatrial septum is intact with no evidence for an atrial septal defect. Mitral Valve * The mitral valve anatomy is normal. * Significant mitral regurgitation is absent. Tricuspid Valve * The tricuspid valve anatomy is normal. * Significant tricuspid regurgitation is absent. Aortic Valve * The aortic valve is tricuspid. The leaflet thickness if normal. There is no aortic stenosis, and no significant insufficiency. * Aortic valve sclerosis mild, without significant aortic valvular stenosis. * There is no significant aortic regurgitation. Pulmonic Valve * The pulmonic valve is not well visualized. * There is no pulmonic valvular regurgitation. Pericardium/Pleural * There is no pericardial effusion. MMode 2D Measurements and Calculations IVSd 1.9 cm IVSs 2.9 cm LVIDd 4.1 cm LVIDs 2.2 cm LVPWd 1.0 cm LVPWs 1.8 cm IVS/LVPW 1.8 FS 45.0 % EDV(Teich) 72.2 ml ESV(Teich) 16.7 ml EF(Teich) 76.8 % EDV(cubed) 66.6 ml ESV(cubed) 11.1 ml EF(cubed) 83.4 % % IVS thick 53.2 % % LVPW thick 76.6 % LV mass(C)d 226.5 grams LV mass(C)dI 106.3 grams/m\S\2 LV mass(C)s 268.9 grams LV mass(C)sI 126.2 grams/m\S\2 SV(Teich) 55.5 ml SI(Teich) 26.0 ml/m\S\2 SV(cubed) 55.5 ml SI(cubed) 26.0 ml/m\S\2 ACS 1.4 cm LA dimension 3.8 cm asc Aorta Diam 3.6 cm LVOT diam 2.1 cm LVOT area 3.6 cm\S\2 LVAd ap4 38.2 cm\S\2 LVLd ap4 9.5 cm EDV(MOD-sp4) 127.1 ml EDV(sp4-el) 129.5 ml LVAs ap4 17.1 cm\S\2 LVLs ap4 7.5 cm ESV(MOD-sp4) 34.1 ml ESV(sp4-el) 33.1 ml EF(MOD-sp4) 73.2 % EF(sp4-el) 74.4 % LVAd ap2 32.4 cm\S\2 LVLd ap2 9.1 cm EDV(MOD-sp2) 94.0 ml EDV(sp2-el) 97.9 ml LVAs ap2 14.9 cm\S\2 LVLs ap2 7.7 cm ESV(MOD-sp2) 24.2 ml ESV(sp2-el) 24.4 ml EF(MOD-sp2) 74.3 % EF(sp2-el) 75.1 % LVLd %diff -4.74 % EDV(MOD-bp) 109.9 ml LVLs %diff 3.0 % ESV(MOD-bp) 29.0 ml EF(MOD-bp) 73.6 % SV(MOD-sp4) 93.0 ml SI(MOD-sp4) 43.6 ml/m\S\2 SV(MOD-sp2) 69.8 ml SI(MOD-sp2) 32.8 ml/m\S\2 SV(MOD-bp) 80.9 ml SI(MOD-bp) 38.0 ml/m\S\2 SV(sp4-el) 96.4 ml SI(sp4-el) 45.2 ml/m\S\2 SV(sp2-el) 73.5 ml SI(sp2-el) 34.5 ml/m\S\2 Doppler Measurements and Calculations MV E max melody 68.2 cm/sec MV A max melody 95.3 cm/sec MV E/A 0.71 MV dec time 0.28 sec Ao V2 max 154.1 cm/sec Ao max PG 9.5 mmHg Ao max PG (full) 4.9 mmHg Ao V2 mean 100.6 cm/sec Ao mean PG 4.7 mmHg Ao mean PG (full) 2.8 mmHg Ao V2 VTI 33.1 cm BALJEET(I,A) 2.5 cm\S\2 BALJEET(I,D) 2.5 cm\S\2 BALJEET(V,A) 2.5 cm\S\2 BALJEET(V,D) 2.5 cm\S\2 LV V1 max PG 4.6 mmHg LV V1 mean PG 2.0 mmHg LV V1 max 106.8 cm/sec LV V1 mean 62.2 cm/sec LV V1 VTI 22.8 cm SV(LVOT) 81.1 ml SI(LVOT) 38.1 ml/m\S\2 PA V2 max 69.0 cm/sec PA max PG 1.9 mmHg TR max melody 205.3 cm/sec
== END 2016-03-24 16:09 | disposition home or self-care (01) ==
LOC: ENRESERVTM → ENRESERVDT → C.EDB 05:44 → C.2T 08:50
PROVIDERS: ADMIT Family Medicine; ATTEND Family Medicine
DX: R07.89 Other chest pain (principal); I16.0 Hypertensive urgency; M65.311 Trigger thumb, right thumb; K14.9 Disease of tongue, unspecified; M25.561 Pain in right knee; I25.10 Atherosclerotic heart disease of native coronary artery without angina pectoris; E10.42 Type 1 diabetes mellitus with diabetic polyneuropathy; J44.9 Chronic obstructive pulmonary disease, unspecified; E78.5 Hyperlipidemia, unspecified; Z96.41 Presence of insulin pump (external) (internal); Z86.73 Personal history of transient ischemic attack (TIA), and cerebral infarction without residual deficits; Z98.1 Arthrodesis status; Z79.82 Long term (current) use of aspirin; Z87.891 Personal history of nicotine dependence; Z83.3 Family history of diabetes mellitus; Z83.6 Family history of other diseases of the respiratory system; Z82.49 Family history of ischemic heart disease and other diseases of the circulatory system

== ENCOUNTER 2016-05-05 10:35 | Emergency (ER) | payer OTHER ==
[~2016-05-05] VITALS: Ht 185.4 cm; Wt 94.6 kg
[~2016-05-05 10:35] MED LIST changes: +CZR25 PO; -LSN20 PO; +NF656 TOP; +OXYC-106 PO; -OXYC1TAB3 PO
[2016-05-05 10:37] VITALS: TEMP 36.6; Ht 185.4 cm; Wt 94.6 kg
[2016-05-05] MEDS ORDERED: AMLO-110 PO (11:01)
[2016-05-05 11:18] LABS: HEMATOCRIT 40.8 % (42-52); MEAN CELL VOLUME 89.3 fL (80-100); MEAN CORPUSCULAR HEMOGLOBIN 31.3 pg (25-34); MEAN PLATELET VOLUME 11.2 fL (7.4-10.4); PLATELET COUNT 171 K/uL (130-400); RED BLOOD COUNT 4.57 M/uL (4.7-6.1); WHITE BLOOD COUNT 6.02 K/uL (4.8-10.8)
[2016-05-05 11:27] LABS: INR 0.9 (0.9-1.1); PARTIAL THROMBOPLASTIN RATIO 0.9; PROTHROMBIN TIME (PATIENT) 10.1 SECONDS (9.0-12.0)
[2016-05-05 11:36] LABS: ALT/SGPT 36 U/L (12-78); AST/SGOT 29 U/L (15-37); BLOOD UREA NITROGEN 23 mg/dl (7-18); BUN/CREATININE RATIO 20.9 (10-20); CALCIUM 8.7 mg/dl (8.5-10.1); CARBON DIOXIDE 26 mmol/L (21-32); CHLORIDE 108 mmol/L (98-107); GLUCOSE 208 mg/dl (70-99); POTASSIUM 4.3 mmol/L (3.5-5.1); SODIUM 140 mmol/L (136-145)
--- NOTE | 2016-05-05 11:39 | DIAGNOSTIC IMAGING REPORT ---
CHEST ONE VIEW PORTABLE CLINICAL HISTORY: Atypical chest pain and hypertension COMPARISON STUDY: 03/23/2016 FINDINGS: The cardiac and mediastinal contours are normal. There is no evidence of focal pulmonary consolidation. There is no evidence of failure. No pleural effusions are visualized.[ There are postsurgical changes of a prior thoracolumbar spinal fusion. IMPRESSION: No active disease in the chest. Electronically signed by: Simon Randhawa M.D. 05/05/2016 11:38 AM Dictated Date/Time: 05/05/2016 11:38 AM
[2016-05-05 11:40] LABS: ALKALINE PHOSPHATASE 82 U/L (45-117)
--- NOTE | 2016-05-05 12:53 | EMERGENCY ROOM VISIT NOTE ---
History Report prepared by Lupeiblurdes: Ester Cowart Under the Supervision of: Dr. Philipp Nath D.O. First contact with patient: 11:25 Chief Complaint: HYPERTENSION Stated Complaint: HIGH BP, BLOOD IN LT EYE, WAS HAVING CHEST PAIN History of Present Illness The patient is a 65 year old male who presents to the Emergency Room with complaints of persistent hypertension through the morning. The patient states that he does have a history of hypertension and is on Norvasc and Coreg. His pressure was 190/140 this morning. The patient took his blood pressure medications between 4AM and 6AM this morning. He also complains of an episode of chest pain that occurred about 10 hours ago. He states that the pain began when someone startled him. His pain has since resolved. This morning when he got up, he noticed that a blood vessel in his left eye had broken. This concerned him because the last time a blood vessel in his eye broken, he was having a heart attack. Currently, the patient does not have any specific complaints. He is on aspirin. Source of History: patient Onset: this morning Position: other (global) Symptom Intensity: 190/140 Timing: other (persistent) Associated Symptoms: + chest pain (resolved) Note: Other symptoms: left eye broken blood vessel Review of Systems See HPI for pertinent positives & negatives. A total of 10 systems reviewed and were otherwise negative. Past Medical & Surgical Medical Problems: (1) ARF (acute renal failure) (2) CAD (coronary artery disease) (3) Chest pain (4) Diabetic polyneuropathy (5) DM2 (diabetes mellitus, type 2) (6) HLD (hyperlipidemia) (7) HTN (hypertension) (8) Neuropathy (9) Stroke Surgical Problems: (1) H/O cardiac catheterization (2) H/O knee surgery (3) History of lumbar fusion (4) Hx of tonsillectomy (5) S/P wrist surgery Family History Diabetes mellitus MOTHER FH: lung disease MOTHER Gallbladder disease Heart disease Social History Smoking Status: Former Smoker Drug Use: none Marital Status: Occupation Status: retired, disabled Current/Historical Medications Scheduled Amlodipine (Norvasc), 5 MG PO DAILY Aspirin (Aspirin Chewable), 81 MG PO DAILY Atorvastatin (Lipitor), 40 MG PO DAILY Carvedilol (Coreg), 12.5 MG PO BID Insulin Aspart (Novolog Flexpen), 1 DOSE SC ACHS Insulin Glargine (Lantus Solostar), 22 UNITS SC HS Lidocaine (Lidoderm Patch 5%), 1 PATCH TOP DAILY Losartan Potassium (Losartan Potassium), 25 MG PO QAM Metformin Hcl (Glucophage), 1,000 MG PO BIDM Nystatin (Nystatin Cream), 1 APPLN TOP BID Ropinirole HCl (Ropinirole HCl), 1 MG PO HS Triamcinolone Acet (Triamcinolone Acetonide), 1 APPLN TOP BID Scheduled PRN Gabapentin (Gabapentin), 800 MG PO TID PRN for Pain Nitroglycerin (Nitrostat), 0.4 MG UT UD PRN for Chest Pain Oxycodone/Acetaminophen 10MG/325MG (Percocet 10MG/325MG), 1 TAB PO DAILY PRN for Pain Allergies Coded Allergies: Levofloxacin (Unverified Adverse Reaction, Severe, KIDNEYS SHUT DOWN, 05/05) Prednisone (Unverified Adverse Reaction, Severe, KIDNEYS SHUT DOWN, ) Physical Exam Vital Signs Date Time Temp Pulse Resp B/P Pulse Ox O2 Delivery O2 Flow Rate FiO2 05/05/16 10:52 75 05/05/16 10:37 36.6 82 20 170/96 98 Room Air Physical Exam CONSTITUTIONAL/VITAL SIGNS: Reviewed / noted above. GENERAL: Non-toxic in appearance. INTEGUMENTARY: Warm, dry, and [place]. HEAD: Normocephalic. EYES: without scleral icterus or trauma. He has CESILIA in the medial left eye sclera. ENT/OROPHARYNX: clear and moist. LYMPHADENOPATHY/NECK: Is supple without lymphadenopathy or meningismus. RESPIRATORY: Lungs clear and equal. CARDIOVASCULAR: Regular rate and rhythm. GI/ABDOMEN: Soft and nontender. No organomegaly or pulsatile mass. No rebound or guarding. Normal bowel sounds. EXTREMITIES: Warm and well perfused. BACK: No CVA tenderness. NEUROLOGICAL: Intact without focal deficits. PSYCHIATRIC: normal affect. MUSCULOSKELETAL: Normally developed with good muscle tone. Medical Decision & Procedures ER Provider Diagnostic Interpretation: Radiology results as stated below per my review and radiologist interpretation: CHEST ONE VIEW PORTABLE CLINICAL HISTORY: Atypical chest pain and hypertension COMPARISON STUDY: 03/23/2016 FINDINGS: The cardiac and mediastinal contours are normal. There is no evidence of focal pulmonary consolidation. There is no evidence of failure. No pleural effusions are visualized.[ There are postsurgical changes of a prior thoracolumbar spinal fusion. IMPRESSION: No active disease in the chest. Electronically signed by: Simon Randhawa M.D. 05/05/2016 11:38 AM Dictated Date/Time: 05/05/2016 11:38 AM Laboratory Results 05/05/16 11:00 05/05/16 11:00 Test 05/05/16 11:00 Red Blood Count 4.57 M/uL (4.7-6.1) Mean Corpuscular Volume 89.3 fL (80-100) Mean Corpuscular Hemoglobin 31.3 pg (25-34) Mean Corpuscular Hemoglobin Concent 35.0 g/dl (32-36) RDW Standard Deviation 38.5 fL (36.4-46.3) RDW Coefficient of Variation 11.9 % (11.5-14.5) Mean Platelet Volume 11.2 fL (7.4-10.4) Prothrombin Time 10.1 SECONDS (9.0-12.0) Prothromb Time International Ratio 0.9 (0.9-1.1) Activated Partial Thromboplast Time 24.6 SECONDS (21.0-31.0) Partial Thromboplastin Ratio 0.9 Anion Gap 6.0 mmol/L (3-11) Est Creatinine Clear Calc Drug Dose 77.7 ml/min Estimated GFR () 82.4 Estimated GFR (Non- 71.1 BUN/Creatinine Ratio 20.9 (10-20) Calcium Level 8.7 mg/dl (8.5-10.1) Total Bilirubin 0.3 mg/dl (0.2-1) Aspartate Amino Transf (AST/SGOT) 29 U/L (15-37) Alanine Aminotransferase (ALT/SGPT) 36 U/L (12-78) Alkaline Phosphatase 82 U/L (45-117) Total Creatine Kinase 239 U/L (39-308) Creatine Kinase MB 7.2 ng/ml (0.5-3.6) Creatine Kinase MB Ratio 3.0 (0-3.0) Troponin I < 0.015 ng/ml (0-0.045) Total Protein 7.2 gm/dl (6.4-8.2) Albumin 3.6 gm/dl (3.4-5.0) Globulin 3.6 gm/dl (2.5-4.0) Albumin/Globulin Ratio 1.0 (0.9-2) Laboratory results as stated above per my review. ECG Indication: chest pain, other (HTN) Rate (beats per minute): 74 Rhythm: normal sinus Findings: RBBB, no ectopy, other (no acute injury) ED Course 1125: Previous medical records were reviewed. The patient was evaluated in room A3. A complete history and physical examination was performed. 1254: On reevaluation, the patient is resting comfortably. I discussed the results and findings with the patient. He verbalized agreement of the treatment plan. The patient was discharged home. Medical Decision the differential was considered includes acute myocardial infarction, acute coronary syndrome, myocarditis, pericarditis, pericardial effusions /tamponade, esophageal perforation, thoracic aortic dissection, pulmonary embolism, pneumonia, pneumothorax, pancreatitis, shingles, acute cholecystitis, perforated abdominal viscus. This is a 65-year-old male who presents to the ED with a chief complaint of having had some chest discomfort at 1 AM when he was awoken by his . 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 He developed a little chest pain at that time. When he awoke this morning he noticed that he had a subconjunctival hemorrhage in his left medial eye. His blood pressure was elevated according to the this morning. She brought him in for this. The patient has not had any chest pain since his initial onset when he woke that lasted just for a few minutes. His left eye reveals a subconjunctival hemorrhage. Blood pressure was 170/96 initially. The patient's evaluation was otherwise unremarkable. EKG showed normal sinus rhythm. CBC is normal. Complete metabolic panel was unremarkable. Cardiac enzymes are negative. A chest x-ray was negative for acute disease. The patient was told results the test. He is felt to be stable for discharge and outpatient follow-up. Impression Primary Impression: CESILIA (subconjunctival hemorrhage) Additional Impression: Chest pain Scribe Attestation The scribe's documentation has been prepared under my direction and personally reviewed by me in its entirety. I confirm that the note above accurately reflects all work, treatment, procedures, and medical decision making performed by me. Departure Information Dispostion Home / Self-Care Referrals Zafar Lau M.D.([facility]) (PCP) Patient Instructions My [facility], Subconjunctival Hemorrhage Additional Instructions Follow-up with your doctor for further care and evaluation in 1-2 days. Return to the emergency department for worsening or new symptoms or any concerns. You have been examined and treated today on an emergency basis only. This is not a substitute for, or an effort to provide, complete comprehensive medical care. It is impossible to recognize and treat all injuries or illnesses in a single emergency department visit. It is therefore important that you follow up closely with your doctor. Call as soon as possible for an appointment. Have your doctor recheck you blood pressure later this week or next week. Problem Qualifiers
[2016-05-05 13:09] VITALS: BP 148/99; PULSE 69; O2SAT 95
== END 2016-05-05 13:16 | disposition home or self-care (01) ==
LOC: C.EDB 10:39 → C.EDA 13:16
DX: H11.32 Conjunctival hemorrhage, left eye (principal); R07.9 Chest pain, unspecified; I10 Essential (primary) hypertension; I25.10 Atherosclerotic heart disease of native coronary artery without angina pectoris; E11.42 Type 2 diabetes mellitus with diabetic polyneuropathy; E78.5 Hyperlipidemia, unspecified; I45.10 Unspecified right bundle-branch block; Z79.82 Long term (current) use of aspirin; Z86.73 Personal history of transient ischemic attack (TIA), and cerebral infarction without residual deficits; Z87.891 Personal history of nicotine dependence; Z83.3 Family history of diabetes mellitus

== ENCOUNTER 2016-09-14 16:51 | Emergency (ER) | payer OTHER ==
[~2016-09-14] VITALS: Ht 185.4 cm; Wt 97.4 kg
[~2016-09-14 16:51] MED LIST changes: +AMLO-110 PO
[2016-09-14 16:53] VITALS: TEMP 36.6; Ht 185.4 cm; Wt 97.4 kg
[2016-09-14] MEDS ORDERED: RANITIDINE HCL 150 MG TAB PO STA (17:13)
[2016-09-14] MEDS ORDERED: DEXAMETHASONE SOD INJ 10 MG/ML VIAL IM STA (17:13)
--- NOTE | 2016-09-14 17:16 | EMERGENCY ROOM VISIT NOTE ---
History Report prepared by Semaj: Haley Rader Under the Supervision of: Dr. Philipp Wright M.D. First contact with patient: 16:58 Chief Complaint: ALLERGIC REACTION Stated Complaint: ALLERGY TO BEE STING History of Present Illness The patient is a 65 year old male who presents to the Emergency Room with complaints of a worsening allergic reaction after being stung on the back of head by a bee just prior to arrival. The patient states that after being stung he had tightness in his chest, shortness of breath, and nausea. He has previously had an allergic reaction to a bee sting with similar symptoms of a lesser severity which were alleviated with Benadryl. Source of History: patient Onset: Just prior to arrival Position: head (Back of) Quality: other (allergic reaction) Timing: worsening Associated Symptoms: + chest pain (tightness), + SOB, + nausea Review of Systems See HPI for pertinent positives & negatives. A total of 10 systems reviewed and were otherwise negative. Past Medical & Surgical Medical Problems: (1) ARF (acute renal failure) (2) CAD (coronary artery disease) (3) Chest pain (4) Diabetic polyneuropathy (5) DM2 (diabetes mellitus, type 2) (6) HLD (hyperlipidemia) (7) HTN (hypertension) (8) Neuropathy (9) Stroke Surgical Problems: (1) H/O cardiac catheterization (2) H/O knee surgery (3) History of lumbar fusion (4) Hx of tonsillectomy (5) S/P wrist surgery Family History Diabetes mellitus MOTHER FH: lung disease MOTHER Gallbladder disease Heart disease Social History Smoking Status: Former Smoker Drug Use: none Marital Status: Occupation Status: retired, disabled Current/Historical Medications Scheduled Amlodipine (Norvasc), 5 MG PO DAILY Aspirin (Aspirin Chewable), 81 MG PO DAILY Atorvastatin (Lipitor), 40 MG PO DAILY Carvedilol (Coreg), 12.5 MG PO BID Cyclobenzaprine Hcl (Flexeril), 5 MG PO TID Epinephrine (Epipen), 0.3 MG IM UD Insulin Glargine (Lantus Solostar), 22 UNITS SC HS Insulin Isophan/Regular (Novolin 70/30), 26 UNITS SC BID Lidocaine (Lidoderm Patch 5%), 1 PATCH TOP DAILY Losartan Potassium (Losartan Potassium), 25 MG PO QAM Metformin Hcl (Glucophage), 1,000 MG PO BIDM Nystatin (Nystatin Cream), 1 APPLN TOP BID Ranitidine Hcl (Zantac), 150 MG PO BID Ropinirole HCl (Ropinirole HCl), 1 MG PO HS Triamcinolone Acet (Triamcinolone Acetonide), 1 APPLN TOP BID Scheduled PRN Gabapentin (Gabapentin), 800 MG PO TID PRN for Pain Nitroglycerin (Nitrostat), 0.4 MG UT UD PRN for Chest Pain Allergies Coded Allergies: Acetaminophen (Unverified Allergy, Unknown, UNKNOWN, 09/14/16) BEE STING (Unverified Allergy, Unknown, UNKNOWN, 09/14/16) Oxycodone (Unverified Allergy, Unknown, UNKNOWN, 09/14/16) Levofloxacin (Unverified Adverse Reaction, Severe, KIDNEYS SHUT DOWN, ) Prednisone (Unverified Adverse Reaction, Severe, KIDNEYS SHUT DOWN, 09/14/16 ) Physical Exam Vital Signs Date Time Temp Pulse Resp B/P (MAP) Pulse Ox O2 Delivery O2 Flow Rate FiO2 09/14/16 18:15 78 20 157/101 96 Room Air 09/14/16 17:02 98 Room Air 09/14/16 16:53 36.6 92 18 154/102 96 Room Air Physical Exam GENERAL: Patient is a healthy-appearing well-nourished male HEAD: Normocephalic atraumatic. Bee sting to left occipital region. EYES: Ocular movements intact pupils equal and react to light OROPHARYNX mucous membranes are moist no exudates present no erythema or edema present NECK: Supple no nuchal rigidity. No stridor. CHEST: Good equal expansion LUNGS: Clear and equal to auscultation. No wheezing. CARDIAC: Normal S1 and S2 ABDOMEN: Soft nontender no guarding BACK: No CVA tenderness EXTREMITIES: No pain upon palpation normal muscle strength in all groups no clubbing cyanosis or edema NEURO: Patient is following commands and answering questions appropriately. Alert and oriented x3 Cranial Nerves 2-12 grossly intact Medical Decision & Procedures Medications Administered Medications (Trade) Dose Ordered Sig/Cari Route Start Time Stop Time Status Last Admin Dose Admin Dexamethasone Sodium Phosphate (Decadron Inj) 10 mg NOW STAT IM 09/14/16 17:13 09/14/16 17:15 DC 09/14/16 17:30 10 MG Diphenhydramine HCl (Benadryl Cap) 50 mg NOW STAT PO 09/14/16 17:13 09/14/16 17:15 DC 09/14/16 17:29 50 MG Ranitidine HCl (zANTac TAB) 150 mg NOW STAT PO 09/14/16 17:13 09/14/16 17:15 DC 09/14/16 17:29 150 MG ED Course 170: Past medical records reviewed. The patient was evaluated in room B6. A complete history and physical examination was performed. 1712 Ordered Zantac tab 150 mg PO, Benadryl Cap 50 mg PO, Decadron Inj 10 mg IM. 1834: Upon reexamination the patient is resting comfortably. I discussed results and treatment plan with the patient. He verbalizes agreement and understanding. The patient is ready for discharge. Medical Decision Differential diagnosis: Etiologies such as allergic reaction, anaphylaxis, urticaria, Reynolds-Stevan syndrome, toxic epidermal necrolysis, erythema multiforme, cellulitis, as well as others were entertained. This is a 65-year-old male who presents emergency department complaining of a bee sting. The patient has an allergic reaction to bees however upon arrival to emergency department he is in no distress. He has no stridor on examination and no wheezing. The patient is allergic to prednisone however he can receive Decadron. The patient received a shot of Decadron along with Benadryl and Zantac. He was observed in the emergency department for proximally 1 hour. I do believe the patient is safe enough to be discharged home. Patient was in agreement with the treatment plan. Impression Primary Impression: Allergic reaction Scribe Attestation The scribe's documentation has been prepared under my direction and personally reviewed by me in its entirety. I confirm that the note above accurately reflects all work, treatment, procedures, and medical decision making performed by me. Departure Information Dispostion Home / Self-Care Prescriptions Ranitidine Hcl (ZANTAC) 150 Mg Tab 150 MG PO BID for 7 Days, #14 TAB Prov: Philipp Wright MD 09/14/16 Epinephrine (EPIPEN) 0.3 Mg/0.3 Ml Inj 0.3 MG IM UD, #2 BOX Prov: Philipp Wright MD 09/14/16 Referrals Zafar Lau M.D.(JENNA) (PCP) Forms HOME CARE DOCUMENTATION FORM, IMPORTANT VISIT INFORMATION Patient Instructions ED Bite Sting Insect Local Allergic React, [facility] Additional Instructions You were found to have an elevated blood pressure today (>120 sytolic or >90 diastolic). Per medicare guidelines, you need to follow up with this blood pressure screening with your Primary Care Physician (PCP). For a new PCP call [phone]. Take 50 mg Benadryl every 6 hours You have been examined and treated today on an emergency basis only. This is not a substitute for, or an effort to provide, complete comprehensive medical care. It is impossible to recognize and treat all injuries or illnesses in a single emergency department visit. It is therefore important that you follow up closely with Dr Lau. Call as soon as possible for an appointment. Thank you for your time and consideration. I look forward to speaking with you again soon. Please don't hesitate to call us if you have any questions. Problem Qualifiers Primary Impression: Allergic reaction Encounter type: initial encounter Qualified Codes: T78.40XA - Allergy, unspecified, initial encounter
[2016-09-14] MEDS ORDERED: INSU70IN2 SC (17:35)
[2016-09-14] MEDS ORDERED: CYCL5TAB PO (17:35)
[2016-09-14] MEDS ORDERED: EPP3/2 IM (18:05)
[2016-09-14] MEDS ORDERED: RANI150T3 PO (18:05)
[2016-09-14 18:15] VITALS: BP 157/101; PULSE 78; O2SAT 96
== END 2016-09-14 18:28 | disposition home or self-care (01) ==
LOC: C.EDB 16:52
DX: T63.441A Toxic effect of venom of bees, accidental (unintentional), initial encounter (principal); W57.XXXA Bitten or stung by nonvenomous insect and other nonvenomous arthropods, initial encounter; N17.9 Acute kidney failure, unspecified; I25.10 Atherosclerotic heart disease of native coronary artery without angina pectoris; E11.9 Type 2 diabetes mellitus without complications; E78.5 Hyperlipidemia, unspecified; I10 Essential (primary) hypertension; G62.9 Polyneuropathy, unspecified; Z83.3 Family history of diabetes mellitus; Z82.49 Family history of ischemic heart disease and other diseases of the circulatory system; Z87.891 Personal history of nicotine dependence; Z79.82 Long term (current) use of aspirin; Z79.4 Long term (current) use of insulin

== ENCOUNTER → 2017-03-01 | Outpatient (CLI) | payer OTHER ==
[~2017-03-01] MED LIST changes: +CYCL5TAB PO; +EPP3/2 IM; +INSU70IN2 SC; -NVLGI/PEN SC; -OXYC-106 PO
[2017-03-01 17:52] LABS: HEMATOCRIT 38.9 % (42-52); HEMOGLOBIN 13.6 g/dL (14.0-18.0); MEAN CELL VOLUME 89.4 fL (80-100); MEAN CORPUSCULAR HEMOGLOBIN 31.3 pg (25-34); MEAN PLATELET VOLUME 11.1 fL (7.4-10.4); PLATELET COUNT 217 K/uL (130-400); RED CELL DISTRIBUTION WIDTH CV 11.9 % (11.5-14.5); RED CELL DISTRIBUTION WIDTH SD 38.8 fL (36.4-46.3); WHITE BLOOD COUNT 8.65 K/uL (4.8-10.8)
== END | disposition home or self-care (01) ==
LOC: C.LABPVFM 16:29
PROVIDERS: ATTEND Family Medicine
DX: R04.0 Epistaxis (principal)

== ENCOUNTER → 2017-05-19 | Outpatient (CLI) | payer OTHER ==
--- NOTE | 2017-06-10 13:09 | CODING QUERY NO DIAGNOSIS ---
TREATMENT RENDERED WITHOUT A DIAGNOSIS DATE OF SERVICE: 05/19/17 To promote full compliance with coding requirements relating to patient care, physician participation is requested in all cases of cake inspector uncertainty. Please assist us with providing a diagnosis/symptom for the test(s) below: A diagnosis/symptom was not documented on your Order. A valid diagnosis/symptom is required to bill all insurances. Please remember that we are unable to code a diagnosis of rule out, probable, possible, questionable, or suspected. Tests that require a diagnosis: * CULTURE, BACTERIAL ANY SOURCE DIAGNOSIS: * CULTURE, BACT, DEF DIAGNOSIS: * M.I.C. SENSITIVITY DIAGNOSIS: * ID, CULTURE ISOLATE DIAGNOSIS: PLEASE BE SURE YOU HAVE ADDED A DIAGNOSIS BEFORE SIGNING Provider Signature: Date: Thank you Serena Barrera Health Information Management Once completed, please kindly fax back to [phone] For questions please call [phone]
== END | disposition home or self-care (01) ==
LOC: C.LABSPEC 17:05
PROVIDERS: ATTEND Orthopaedic Surgery
DX: L03.012 Cellulitis of left finger (principal)

== ENCOUNTER → 2017-09-15 | Outpatient (CLI) | payer OTHER ==
[~2017-09-15] MED LIST changes: -AMLO-110 PO; +AMLO5TAB3 PO
[2017-09-15 17:42] LABS: ALBUMIN 3.9 gm/dl (3.4-5.0); ALKALINE PHOSPHATASE 90 U/L (45-117); ALT/SGPT 26 U/L (12-78); AST/SGOT 24 U/L (15-37); BLOOD UREA NITROGEN 36 mg/dl (7-18); CARBON DIOXIDE 24 mmol/L (21-32); CHOLESTEROL 106 mg/dl (0-200); CREATININE 1.93 mg/dl (0.60-1.40); GLUCOSE 83 mg/dl (70-99); LDL CHOLESTEROL CALCULATED 38 mg/dl; POTASSIUM 4.7 mmol/L (3.5-5.1); SODIUM 138 mmol/L (136-145); TOTAL PROTEIN 7.5 gm/dl (6.4-8.2)
[2017-09-16 06:02] LABS: HEMOGLOBIN A1C 8.9 % (4.5-5.6)
== END | disposition home or self-care (01) ==
LOC: C.LABPVFM 16:10
PROVIDERS: ATTEND Family Medicine
DX: E78.5 Hyperlipidemia, unspecified (principal); M54.12 Radiculopathy, cervical region